=== PATIENT | female | born 1955 | race Caucasian/White ===

== ENCOUNTER 2020-07-02 09:43 | Outpatient (REF) | payer MEDICARE, SELFPAY ==
--- NOTE | 2020-07-02 | MM_ITS ---
EXAMINATION: MM SCREENING DIGITAL BREAST TOMOSYNTHESIS, BILATERAL CLINICAL INFORMATION: Screening. Asymptomatic. The lifetime risk of breast cancer based on the Tyrer-Cuzick Model is 4%. COMPARISON: Mammography: 10/27/2018, 07/23/2017 TECHNIQUE: Digital breast tomosynthesis is performed in both the craniocaudal and mediolateral oblique views along with computer-aided detection (CAD). Synthesized 2D images are generated from the tomosynthesis. FINDINGS: There are scattered areas of fibroglandular density (ACR BI-RADS breast composition Category b). There are no significant masses, abnormal calcifications, or other abnormalities. There is small stable nodule upper outer left breast likely intramammary node similar to prior exams. The axilla and skin contours are unremarkable. IMPRESSION: No significant changes from prior studies. ASSESSMENT: BI-RADS 2: Benign RECOMMENDATION: Routine annual mammography screening. This patient's information was entered into a reminder system with a target due date for their next mammogram.
== END 2020-07-02 09:44 | disposition home or self-care (01) ==
LOC: HO.MAMMO 09:43
PROVIDERS: PCP Internal Medicine; Visit Provider Internal Medicine
DX: Z12.31 Encounter for screening mammogram for malignant neoplasm of breast (principal)
CPT/HCPCS: 77063; 77067

== ENCOUNTER → 2020-11-30 07:38 | Outpatient (BNVA) | payer MEDICARE, SELFPAY | PROVIDERS: PCP Internal Medicine; Visit Provider Advanced Practice Midwife ==

== ENCOUNTER 2021-03-04 10:18 | Outpatient (REF) | payer MEDICARE, SELFPAY ==
[2021-03-04 12:29] LABS: Mean Corpuscular HGB Conc 33.3 g/dl (31.0-35.0); Mean Corpuscular Hemoglobin 30.3 pg (27.0-33.0); Mean Corpuscular Volume 90.9 fL (80-98); Platelet Count 227 X10*3/uL (160-400); Red Blood Count 4.62 X10*6/uL (4.20-5.50); Red Cell Distribution Width 12.9 % (11.0-16.0); White Blood Count 6.7 X10*3/uL (4.8-10.8)
[2021-03-04 12:44] LABS: Alanine Aminotransferase 20 U/L (0-31); Albumin Level 4.2 g/dL (3.5-5.0); Alkaline Phosphatase 81 U/L (39-117); Anion Gap 11 (12-20); Aspartate Amino Transferase 16 U/L (5-31); Bilirubin Total 0.7 mg/dL (0.0-1.0); Blood Urea Nitrogen 11 mg/dL (9-16); Calcium 9.1 mg/dL (8.4-10.2); Carbon Dioxide 27 mmol/L (22-29); Chloride 107 mmol/L (96-108); Estimated Glomerular Filt Rate > 60; Glucose Random 100 mg/dL (60-115); Potassium 4.2 mmol/L (3.3-5.1); Sodium 141 mmol/L (135-145); Total Protein 6.9 g/dL (6.5-8.0)
== END 2021-03-04 10:19 | disposition home or self-care (01) ==
LOC: HO.LAB 10:18
PROVIDERS: PCP Internal Medicine; Referring Provider Internal Medicine; Visit Provider Nurse Practitioner Family
DX: Z01.818 Encounter for other preprocedural examination (principal)
CPT/HCPCS: 36415; 80053; 85027; 99202

== ENCOUNTER 2021-04-26 12:07 | Day surgery (SDC) | payer MEDICARE, SELFPAY ==
[2021-04-22 10:47] VITALS: BMI 34.9
--- NOTE | 2021-04-25 11:47 | HO.ANESPROP2 ---
Documented by User: Donna Emma 04/25/21 11:49 HPI - Anesthesia Eval Consult details Narrative: 65yo F Colonoscopy PMFSH Past Medical History Medical History No significant medical problems Family History Family History Father Leukemia Surgical History Surgical History H/O colonoscopy Hx of section Hx of dilation and curettage Hx of tubal ligation Social History Social History Alcohol intake: never Patient Tobacco Use Status: Tobacco use Unknown Advance Directives Information Provided: No Meds Allergies Allergy/AdvReac Type Severity Reaction Status Date / Time No Known Allergies Allergy Verified 04/26/21 12:12 [No Known Allergies*] Home Medications Medication Instructions Recorded Confirmed Last Taken Type cholecalciferol (vitamin D3) 25 25 mcg PO DAILY 03/04/21 04/22/21 Unknown History mcg (1,000 unit) capsule Exam Exam Date and Time: April 25, 2021 1147 Height,Weight and Vital Signs: Height 4 ft 11 in Weight 78.528 kg Pertinent Lab Results Pertinent Lab Results: Laboratory Tests 03/04/21 03/04/21 11:43 11:43 WBC 6.7 Hgb 14.0 Hct 42.0 Plt Count 227 Sodium 141 Potassium 4.2 Chloride 107 Carbon Dioxide 27 BUN 11 Creatinine 0.66 Assessment and Plan Assessment Anesthesia Assessment: Chart Reviewed Documented by User: Di Almanza MD 04/26/21 13:45 PMFSH Past Medical History Medical History No significant medical problems Functional capacity: wheelchair bound Family History Family History Father Leukemia Surgical History Surgical History H/O colonoscopy Hx of section Hx of dilation and curettage Hx of tubal ligation History of Problems with Anesthesia: No Social History Social History Alcohol intake: never Patient Tobacco Use Status: Tobacco use Unknown Advance Directives Information Provided: No Meds Allergies Allergy/AdvReac Type Severity Reaction Status Date / Time No Known Allergies Allergy Verified 04/26/21 12:12 [No Known Allergies*] Home Medications Medication Instructions Recorded Confirmed Last Taken Type cholecalciferol (vitamin D3) 25 25 mcg PO DAILY 03/04/21 04/22/21 Unknown History mcg (1,000 unit) capsule Exam Airway Mallampati Class: II TM Dist: >3cm Neck ROM: Full Denture: Upper Partial: Lower Loose/Missing/Broken Teeth: Yes, Upper and Lower Heart: RRR Lungs: CTA Assessment and Plan Assessment Anesthesia Assessment: Anesthesia Plan Discussed Final Anesthetic Review History of Problems with Anesthesia: No NPO: Yes ASA Class: II Final Preanesthetic Review: Meds/Allgs Chart Reviewed, Consent Obtained/Reviewed and Anes Risks/Benef Reviewed Patient Risk: Low Procedure Risk: Low Anesthetic Plan Anesthetic Plan: MAC: Disposition: Standard PACU
[2021-04-26 12:45] VITALS: BP 138/73; PULSE 76; RESP 18; TEMP 36.1; O2SAT 93
[2021-04-26] MEDS: Lactated Ringers 1,000 ML 100 ML IVCONT (12:48)
--- NOTE | 2021-04-26 13:27 | MHC.SHP ---
Pre-Procedural Eval Section A Date of Service: 04/26/21 The patient is an INPATIENT: No The History & Physical has been completed within 30 days and I have reviewed it.: No Section B Chief Complaint: screening Details of Present Illness: Colon cancer screening Relevant Family History (Specify if Yes): No Relevant Social History: None Present Medications: see Short Stay Collaborative assessment Medical History: No relevant PMH History of Previous Operations: Relevant previous surgery/procedure and date(s) (Hx of section Hx of dilation and curettage Hx of tubal ligation) Allergies: Allergies Allergy/AdvReac Type Severity Reaction Status Date / Time No Known Allergies Allergy Verified 04/26/21 12:12 [No Known Allergies*] Review of Systems Sugical H&P ROS: Negative: Constitution, Cardiovascular, Respiratory and Genitourinary Exam Surgical H&P Exam: Normal: Heart, Normal: Lungs, Normal: Extremities and Normal: Abdomen Plan Diagnosis/Plan: Unchanged I have reviewed the history and physical and performed a pertinent physical examination on my patient. No changes have occurred unless specified.
--- NOTE | 2021-04-26 13:43 | PM.OP ---
Brief Operative Note Date of Service: 04/26/21 Pre-op diagnosis: Colon cancer screening, hx of colon polyps Post-op diagnosis: other (Colon polyps, diverticulosis) Procedure: COLONOSCOPY TILL CECUM WITH BIOPSIES, SNARE POLYPECTOMY AND CONTROL OF BLEEDING Consent: Indications for the procedure and potential complications of bleeding, perforation, reaction to medications and missed diagnosis were discussed with the patient and informed consent was obtained. Instrument: Olympus PCF H 190 L variable stiffness pediatric colonoscope Monitoring: Vital signs and clinical assessment, intermittent blood pressure monitoring, continuous EKG monitoring, Pulse oximetry and Carbon Dioxide monitoring were done throughout the procedure. Colon withdrawl time was 31 minutes. Procedure: The patient was placed in the left lateral decubitis position and pre-procedure medications were administered. After a digital rectal examination of the ano-rectum, the video colonoscope was inserted into the rectum and advanced through the colon to the cecum. The colonoscope was slowly withdrawn in a retrograde panoramic fashion and the colon mucosa was carefully examined including a retroflexed view of the rectum. Findings and interventions are described below. Procedure Difficulty: Without difficulty Findings: Terminal Ileum: Not evaluated Cecum: A 5-6 mm sessile polyp removed with a cold snare. A 2-3 mm sessile polyp removed with a cold bx. Ascending Colon: Scattered diverticulosis Transverse Colon: Two 10-12 mm sessile polyps removed with a cold snare. Descending Colon: Moderate diverticulosis. Sigmoid Colon: A 15 mm sessile polyp at 30 cms inadvertantly removed with a cold snare. Some bleeding at polypectomy site controlled with cautery using the snare tip. Moderate diverticulosis Rectum: Normal Ano-rectum: Normal Colon preparation: Good after some irrigation Impression and Post Procedure Diagnosis: Colonoscopy Findings: Five small to medium sized polyps removed Moderate diverticulosis seen in the right and left colon Plan: Await pathology results Patient has an appointment on 05/10/21 in the GI Clinic with Tammy Lambert FNP-BC. Repeat Colonoscopy interval based on path results - in 3-5 years if polyps are adenomatous and 10 years if polyps are hyperplastic. Above findings were reviewed with the patient and colon polyps and diverticulosis handouts were given in the discharge area Surgeon: Ed Awad MD Anesthesia: MAC (Elif Brown CRNA) Was an Applied Marine Physics Professor used for this Procedure?: No Applied Marine Physics Professor: Zen Durand Estimated blood loss (mL): 0 Pathology: other (A- TRANSVERSE COLON POLYPS B- CECAL POLYPS C SIGMOID POLYP) Condition: stable Disposition: PACU
[2021-04-26 14:33] VITALS: BP 106/58; PULSE 83; RESP 18; TEMP 36.1; O2SAT 98
[2021-04-26 14:48] VITALS: BP 109/55; PULSE 81; RESP 20; O2SAT 99
[2021-04-26 15:03] VITALS: BP 120/54; PULSE 69; RESP 20; TEMP 36.2; O2SAT 99
--- NOTE | 2021-04-26 19:19 | P.OP_ITS ---
Operative Note Operative Note Date of Service: 04/26/21 Narrative: Pre-op diagnosis:?Colon cancer screening, hx of colon polyps Post-op diagnosis:?other (Colon polyps, diverticulosis) Procedure:? COLONOSCOPY TILL CECUM WITH BIOPSIES, SNARE POLYPECTOMY AND CONTROL OF BLEEDING Consent: Indications for the procedure and potential complications of bleeding, perforation, reaction to medications and missed diagnosis were discussed with the patient and informed consent was obtained. Instrument: Olympus PCF H 190 L variable stiffness pediatric colonoscope Monitoring: Vital signs and clinical assessment, intermittent blood pressure monitoring, continuous EKG monitoring, Pulse oximetry and Carbon Dioxide monitoring were done throughout the procedure. Colon withdrawl time was 31 minutes. Procedure: The patient was placed in the left lateral decubitis position and pre-procedure medications were administered. After a digital rectal examination of the ano-rectum, the video colonoscope was inserted into the rectum and advanced through the colon to the cecum. The colonoscope was slowly withdrawn in a retrograde panoramic fashion and the colon mucosa was carefully examined including a retroflexed view of the rectum. Findings and interventions are described below. Procedure Difficulty: Without difficulty Findings: Terminal Ileum: Not evaluated Cecum:? A 5-6 mm sessile polyp removed with a cold snare.? A 2-3 mm sessile polyp removed with a cold bx. Ascending Colon:? Scattered diverticulosis Transverse Colon:? Two 10-12 mm sessile polyps removed with a cold snare. Descending Colon:? Moderate diverticulosis. Sigmoid Colon:? A 15 mm sessile polyp at 30 cms inadvertantly removed with a cold snare. Some bleeding at polypectomy site controlled with cautery using the snare tip.? Moderate diverticulosis Rectum:? Normal Ano-rectum:? Normal Colon preparation:? Good after some irrigation Impression and Post Procedure Diagnosis: Colonoscopy Findings: Five small to medium sized polyps removed Moderate diverticulosis seen in the right and left colon Plan: Await pathology results Patient has an appointment on 05/10/21 in the GI Clinic with Tammy Lambert FNP- [facility]. Repeat Colonoscopy interval based on path results - in 3-5 years if polyps are adenomatous and 10 years if polyps are hyperplastic. Above findings were reviewed with the patient and colon polyps and diverticulosis handouts were given in the discharge area Surgeon:?Ed Awad MD Anesthesia:?MAC (Elif Brown CRNA) Was an Justowriter Operator used for this Procedure?:?No Justowriter Operator:?Zen Durand Estimated blood loss (mL):?0 Pathology:?other (A- TRANSVERSE COLON POLYPS? B- CECAL POLYPS? C SIGMOID POLYP) Condition:?stable Disposition:?PACU
== END 2021-04-26 15:34 | disposition home or self-care (01) ==
PROVIDERS: PCP Internal Medicine; Visit Provider Internal Medicine Gastroenterology
PROC: 0DJD8ZZ Inspection of Lower Intestinal Tract, Via Natural or Artificial Opening Endoscopic (ICD-10-PCS; CPT 45378; principal; 2021-04-26 13:20)
DX: Z12.11 Encounter for screening for malignant neoplasm of colon (principal); Z86.010 Personal history of colon polyps; D12.0 Benign neoplasm of cecum; D12.3 Benign neoplasm of transverse colon; K51.40 Inflammatory polyps of colon without complications; K57.30 Diverticulosis of large intestine without perforation or abscess without bleeding; Z79.899 Other long term (current) drug therapy; Z80.6 Family history of leukemia
CPT/HCPCS: 45385; 45380; 88305

== ENCOUNTER → 2021-05-10 15:04 | Outpatient (BNVA) | payer MEDICARE, SELFPAY | PROVIDERS: Visit Provider Nurse Practitioner Family | DX: D12.3 Benign neoplasm of transverse colon (principal); D12.0 Benign neoplasm of cecum; K57.90 Diverticulosis of intestine, part unspecified, without perforation or abscess without bleeding; Z98.890 Other specified postprocedural states | CPT/HCPCS: Q3014 ==

== ENCOUNTER 2021-07-22 09:48 | Outpatient (REF) | payer MEDICARE, SELFPAY ==
--- NOTE | ~2021-07-22 | MM_ITS ---
EXAMINATION: MM SCREENING DIGITAL BREAST TOMOSYNTHESIS, BILATERAL CLINICAL INFORMATION: Screening. Asymptomatic. The lifetime risk of breast cancer based on the Tyrer-Cuzick Model is 4%. COMPARISON: Mammography: 07/02/2020, 10/27/2018, 07/23/2017 TECHNIQUE: Digital breast tomosynthesis is performed in both the craniocaudal and mediolateral oblique views along with computer-aided detection (CAD). Synthesized 2D images are generated from the tomosynthesis. FINDINGS: There are scattered areas of fibroglandular density (ACR BI-RADS breast composition Category b). There are no significant masses, abnormal calcifications, or other abnormalities. No developing density. No significant changes. MM/MM tomosynthesis screening BI IMPRESSION: No mammographic evidence of malignancy. ASSESSMENT: BI-RADS 1: Negative RECOMMENDATION: Routine annual mammography screening. This patient's information was entered into a reminder system with a target due date for their next mammogram.
== END 2021-07-22 09:49 | disposition home or self-care (01) ==
LOC: HO.MAMMO 09:48
PROVIDERS: PCP Physician Assistant; Visit Provider Physician Assistant
DX: Z12.31 Encounter for screening mammogram for malignant neoplasm of breast (principal)
CPT/HCPCS: 77063; 77067

== ENCOUNTER 2021-12-02 08:35 | Outpatient (REF) | payer MEDICARE, SELFPAY | END 2021-12-02 08:36 | disposition home or self-care (01) | LOC: HO.LAB 08:35 | PROVIDERS: PCP Internal Medicine; Visit Provider Advanced Practice Midwife | DX: Z01.411 Encounter for gynecological examination (general) (routine) with abnormal findings (principal); N84.1 Polyp of cervix uteri; L29.9 Pruritus, unspecified | CPT/HCPCS: 57500; 58558; 88305 ==

== ENCOUNTER 2021-12-25 11:24 | Outpatient (REF) | payer MEDICARE, SELFPAY ==
--- NOTE | ~2021-12-25 | US_ITS ---
EXAMINATION: US PELVIS CLINICAL INFORMATION: Cervical polyp COMPARISON: Previous pelvic ultrasound most recent January 2017 TECHNIQUE: Ultrasound of the pelvis is performed using both transabdominal and transvaginal transducers along with Doppler. Transvaginal imaging is performed due to inadequate visualization transabdominally. FINDINGS: The uterus is anteverted and measures 7.5 x 3.5 x 5.2 cm in dimension. There is a 0.9 x 0.7 x 0.9 cm hypoechoic lesion in the anterior upper uterine body that is a similar to previous exam and probably represents a fibroid. No other focal uterine lesion is seen. The endometrium is slightly thickened measuring 0.8 cm. The endometrium appears more homogeneous than seen on January 2017 exam. There are nabothian cysts in the cervix. No cervical mass or polyp is appreciated. The ovaries are normal-appearing. The right ovary measures 1.9 x 1.1 x 1.5 cm. The left ovary measures 2.1 x 0.9 x 1.2 cm. There is no fluid in the pelvis. US/US pelvic and transvaginal IMPRESSION: Slightly thickened endometrium measuring 0.8 cm. Probable small uterine fibroid. Nabothian cysts in the cervix. Normal-appearing ovaries.
== END 2021-12-25 11:25 | disposition home or self-care (01) ==
LOC: HO.US 11:24
PROVIDERS: Visit Provider Advanced Practice Midwife
DX: N84.1 Polyp of cervix uteri (principal)
CPT/HCPCS: 76830; 76856

== ENCOUNTER 2022-01-01 15:17 | Outpatient (REF) | payer MEDICARE, SELFPAY ==
[2022-01-02 09:43] LABS: BV Int Neg Control Negative (Negative); BV Int Pos Control Positive (Positive)
== END 2022-01-01 15:18 | disposition home or self-care (01) ==
LOC: HO.LAB 15:17
PROVIDERS: PCP Physician Assistant; Visit Provider Advanced Practice Midwife
DX: L29.2 Pruritus vulvae (principal); D25.9 Leiomyoma of uterus, unspecified; Z71.2 Person consulting for explanation of examination or test findings
CPT/HCPCS: 87480; 87510; 87660; 99212

== ENCOUNTER 2022-07-28 10:00 | Outpatient (REF) | payer MEDICARE, SELFPAY ==
--- NOTE | ~2022-07-28 | MM_ITS ---
EXAMINATION: MM SCREENING DIGITAL BREAST TOMOSYNTHESIS, BILATERAL CLINICAL INFORMATION: Screening. Asymptomatic. COMPARISON: Mammography: 07/22/2021, 07/02/2020, 10/27/2018, 08/10/2017, 07/08/2016 TECHNIQUE: Digital breast tomosynthesis is performed in both the craniocaudal and mediolateral oblique views along with computer-aided detection (CAD). Synthesized 2D images are generated from the tomosynthesis. FINDINGS: There are scattered areas of fibroglandular density (ACR BI-RADS breast composition Category b). Scattered fine fibronodular pattern is similar to prior studies . No significant mass or architectural abnormality. No abnormal calcifications. The axilla and skin contours are unremarkable. No significant changes. MM/MM tomosynthesis screening BI IMPRESSION: No mammographic evidence of malignancy. ASSESSMENT: BI-RADS 1: Negative RECOMMENDATION: Routine annual mammography screening. This patient's information was entered into a reminder system with a target due date for their next mammogram.
== END 2022-07-28 10:01 | disposition home or self-care (01) ==
LOC: HO.MAMMO 10:00
PROVIDERS: PCP Physician Assistant; Visit Provider Physician Assistant
DX: Z12.31 Encounter for screening mammogram for malignant neoplasm of breast (principal)
CPT/HCPCS: 77063; 77067

== ENCOUNTER → 2022-12-04 10:10 | Outpatient (BNVA) | payer MEDICARE, SELFPAY | PROVIDERS: PCP Physician Assistant; Visit Provider Advanced Practice Midwife ==

== ENCOUNTER 2023-09-15 10:51 | Outpatient (REF) | payer MEDICARE, SELFPAY | END 2023-09-15 10:52 | disposition home or self-care (01) | LOC: HO.MAMMO 10:51 | PROVIDERS: Visit Provider Physician Assistant | DX: Z12.31 Encounter for screening mammogram for malignant neoplasm of breast (principal) | CPT/HCPCS: 77063; 77067 ==

== ENCOUNTER → 2023-09-15 11:30 | Outpatient (BNV) | payer MEDICARE, SELFPAY | PROVIDERS: Visit Provider Radiology Diagnostic Radiology | DX: Z12.31 Encounter for screening mammogram for malignant neoplasm of breast (principal) | CPT/HCPCS: 77063; 77067 ==

== ENCOUNTER 2023-12-08 09:56 | Outpatient (AMB) | payer MEDICARE, SELFPAY ==
--- NOTE | 2023-12-08 10:06 | A.OFFVIS_ITS ---
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 She is doing well with concerns: Occasional external irritation, admits to using scented soaps. Admits to eat a not healthy diet,reports has calcium and vitamin D, and stays active with some walking. Currently not sexually active. Occasional external irritation. Last mammogram; 2022. Colonoscopy is UTD. Denies any family history of breast, ovarian or colon cancer. PFS Medical History Tubular adenoma No significant medical problems Surgical History H/O colonoscopy Hx of dilation and curettage Hx of tubal ligation Hx of section Family History Father Leukemia Social History Alcohol intake: never Patient Tobacco Use Status: Tobacco use Unknown Female Reproductive History Menstrual Menopause type: natural Total pregnancies: 3 Full term: 3 Number of Living Children: 3 Date of last pap smear: 02/07/19 (neg pap and hpv) Date of Mammogram: 09/15/23 ([facility] 1) Review of Systems Const All systems reviewed & are unremarkable except as noted in HPI and below Reports as per HPI Eyes Reports no additional complaints ENT Reports no additional complaints Card Reports no additional complaints Resp Reports no additional complaints GI Reports as per HPI and Reports no additional complaints Reports as per HPI Musc Reports no additional complaints Skin/Breast Reports as per HPI Neuro Reports no additional complaints Psych Reports no additional complaints Endo Reports no additional complaints Ag/Lymph Reports no additional complaints Aller/Immun Reports no additional complaints Physical Exam Vital Signs: Last Vital Signs BP 102/66 12/08/23 10:07 BMI result Body Mass Index 39.2 Const General: cooperative, healthy appearing, no acute distress, well developed and alert Orientation/consciousness: patient oriented x3 HEENT Head: Yes normal to inspection Eyes General: appearance normal, both eyes and all related structures Neck Neck: Yes normal visual inspection Thyroid: Thyroid normal Chest Chest palpation & inspection: normal inspection of the chest and other (no puckering, dimpling, peau de orange, retraction, discharge, masses) Breast/axilla inspection: normal inspection of the breasts Breast/axilla palpation: normal palpation of the breasts Resp Effort & Inspection: normal respiratory effort GI Inspection: Yes normal to inspection and Yes obesity Palpation (GI): Soft to palpation Rectal Exam - Female: deferred General: Yes bladder normal to palpation External Female Exam: normal external appearance and normal appearance of the urethra Speculum Exam - Vagina: normal appearance of the vagina, normal palpation and normal vaginal discharge Speculum Exam - Cervix: normal appearance of the cervix and normal palpation Bimanual exam- vagina & uterus: normal bimanual exam, normal palpation, uterine size normal, bladder normal to palpation, normal palpation and non-tender Bimanual Exam- Adnexa, other: no masses Skin General skin exam: no rashes or lesions noted Rashes: no rashes Neuro General: patient oriented x3 Cognition (Neuro): normal cognition Extrem General: Yes normal to inspection Psych Attitude: cooperative Thought process: Normal thought process present Assessment & Plan Assessment & Plan (1) Encounter for well woman exam with routine gynecological exam: Code(s): Z01.419 - Encounter for gynecological examination (general) (routine) without abnormal findings Plan Discussed: Current recommendations for pap smears per ASCCP guidelines. Breast awareness, periodic self breast exams and yearly mammogram. Maintain a healthy lifestyle, well balanced diet including Calcium 1,200 mg and Vitamin D 600 IU daily, and routine exercise-start slow, an example 15 minute walk, gradually building up. Advised to stop using scented soaps go with more of a mild unscented, baby soap, dry well, loose cotton clothing. Contact the office with any postmenopausal bleeding. Patient verbalizes understanding and agrees to the plan of care. She was given opportunity to ask questions and all questions were answered to the best of my ability. RTO in 1 year for annual ob gyn physician assistant exam. This note is constructed using voice recognition software. While every effort has been made to ensure accuracy, dispensary technician errors may have been included. Coding Level of Care Code Est Pt Prev Care >65y(86669) Diagnoses Encounter for well woman exam with routine gynecological exam Z01.419
[2023-12-08 10:07] VITALS: BP 102/66; BMI 39.2
== END 2023-12-08 10:33 | disposition home or self-care (01) ==
LOC: HO.HWS 09:56
PROVIDERS: PCP Physician Assistant; Visit Provider Advanced Practice Midwife
DX: Z01.419 Encounter for gynecological examination (general) (routine) without abnormal findings (principal)
CPT/HCPCS: 99397

== ENCOUNTER → 2023-12-08 09:56 | Outpatient (BNVA) | payer MEDICARE, SELFPAY | PROVIDERS: PCP Physician Assistant; Visit Provider Advanced Practice Midwife ==

== ENCOUNTER 2024-09-16 10:42 | Outpatient (REF) | payer MEDICARE, SELFPAY | END 2024-09-16 10:43 | disposition home or self-care (01) | LOC: HO.MAMMO 10:42 | PROVIDERS: PCP Physician Assistant; Visit Provider Physician Assistant | DX: Z12.31 Encounter for screening mammogram for malignant neoplasm of breast (principal) | CPT/HCPCS: 77063; 77067 ==

== ENCOUNTER → 2024-09-16 11:15 | Outpatient (BNV) | payer MEDICARE, SELFPAY | PROVIDERS: PCP Physician Assistant; Visit Provider Internal Medicine | DX: Z12.31 Encounter for screening mammogram for malignant neoplasm of breast (principal) | CPT/HCPCS: 77063; 77067 ==

== ENCOUNTER 2024-12-13 10:21 | Outpatient (REF) | payer MEDICARE, SELFPAY ==
[2024-12-13 18:01] LABS: Bacterial Vaginosis PCR NEGATIVE (Negative); Candida Group PCR NOT DETECTED (Not Detect); Candida glab krusei PCR NOT DETECTED (Not Detect); Trichomonas vaginalis PCR NOT DETECTED (Not Detect)
== END 2024-12-13 10:22 | disposition home or self-care (01) ==
LOC: HO.LAB 10:21
PROVIDERS: PCP Physician Assistant; Visit Provider Advanced Practice Midwife
DX: L29.2 Pruritus vulvae (principal)
CPT/HCPCS: 81515; 99397; 99459

== ENCOUNTER 2024-12-13 10:21 | Outpatient (AMB) | payer MEDICARE, SELFPAY ==
[2024-12-13 11:08] VITALS: BP 130/76; BMI 37.8
--- NOTE | 2024-12-13 11:08 | MHC.OFFVIS ---
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 She is doing well with ledger clerk concerns: outside itching at times. Currently not sexually active. Denies any vaginal dryness or irritation. Attempting to eat a healthy diet with calcium and vitamin D and stays active with exercise. Last pap smear; 2018. Last mammogram; 2023. Colonoscopy is UTD. Denies any family history of breast, ovarian or colon cancer. [facility] Medical History Encounter for well woman exam with routine gynecological exam Tubular adenoma No significant medical problems Surgical History H/O colonoscopy Hx of dilation and curettage Hx of tubal ligation Hx of section Family History Father Leukemia Brother Prostate cancer Social History Alcohol intake: never Patient Tobacco Use Status: Tobacco use Unknown Female Reproductive History Menstrual Menopause type: natural Total pregnancies: 3 Full term: 3 Number of Living Children: 3 Date of last pap smear: 02/07/19 (neg pap and hpv) Date of Mammogram: 09/16/24 ([facility] 1) Review of Systems Const All systems reviewed & are unremarkable except as noted in HPI and below Reports as per HPI Eyes Reports no additional complaints ENT Reports no additional complaints Card Reports no additional complaints Resp Reports no additional complaints GI Reports as per HPI and Reports no additional complaints Reports as per HPI Musc Reports no additional complaints Skin/Breast Reports as per HPI Neuro Reports no additional complaints Psych Reports no additional complaints Endo Reports no additional complaints Ag/Lymph Reports no additional complaints Aller/Immun Reports no additional complaints Physical Exam Vital Signs: Last Vital Signs BP 130/76 12/13/24 11:08 BMI result Body Mass Index 37.8 Const General: cooperative, healthy appearing, no acute distress, well developed and alert Orientation/consciousness: patient oriented x3 HEENT Head: Yes normal to inspection Eyes General: appearance normal, both eyes and all related structures Neck Neck: Yes normal visual inspection Thyroid: Thyroid normal Chest Chest palpation & inspection: normal inspection of the chest and other (no puckering, dimpling, peau de orange, retraction, discharge, masses) Breast/axilla inspection: normal inspection of the breasts Breast/axilla palpation: normal palpation of the breasts Resp Effort & Inspection: normal respiratory effort GI Inspection: Yes obesity Palpation (GI): Soft to palpation Rectal Exam - Female: deferred General: Yes bladder normal to palpation External Female Exam: normal external appearance and normal appearance of the urethra Speculum Exam - Vagina: normal appearance of the vagina, normal palpation, normal vaginal discharge and vagina atrophic Speculum Exam - Cervix: normal appearance of the cervix and normal palpation Bimanual exam- vagina & uterus: normal bimanual exam, normal palpation, uterine size normal, bladder normal to palpation, normal palpation and non-tender Bimanual Exam- Adnexa, other: no masses Skin General skin exam: no rashes or lesions noted Rashes: no rashes Neuro General: patient oriented x3 Cognition (Neuro): normal cognition Extrem General: Yes normal to inspection Psych Attitude: cooperative Thought process: Normal thought process present Assessment & Plan Assessment & Plan (1) Encounter for well woman exam with routine gynecological exam: Code(s): Z01.419 - Encounter for gynecological examination (general) (routine) without abnormal findings Category: Medical Plan: Discussed: Current recommendations for pap smears per ASCCP guidelines. Breast awareness, periodic self breast exams and yearly mammogram. Maintain a healthy lifestyle, well balanced diet including Calcium 1,200 mg and Vitamin D 600 IU daily, and routine exercise. Contact the office with any postmenopausal bleeding. Patient verbalizes understanding and agrees to the plan of care. She was given opportunity to ask questions and all questions were answered to the best of my ability. RTO in 1 year for annual ledger clerk exam. This note is constructed using voice recognition software. While every effort has been made to ensure accuracy, outside sales representative insurance errors may have been included. (2) Vulvar itching: Code(s): L29.2 - Pruritus vulvae Plan Discussed: Skin area appears normal, various causes for vulvar itching. BV culture obtained await results for plan of care. Avoid any tight reconstructive clothing, continue to use cotton underwear and use a mild unscented soap to clean if needed. Follow up p.r.n.. The patient expressed understanding and agreement with the plan of care. All of her questions and concerns were addressed to the best of my ability. Total time I personally spent on visit and management today: ?10minutes. Time spent included review of pertinent office notes in the electronic health record; review of laboratory and imaging results; review of personal family medical history; performing physical exam; discussing diagnosis and plan of care with the patient; documenting the encounter in the EMR. Coding Level of Care Code Est Pt Level 2 (50131) Est Pt Prev Care >65y(84355) Diagnoses Encounter for well woman exam with routine gynecological exam Z01.419 Vulvar itching L29.2
== END 2024-12-13 11:36 | disposition home or self-care (01) ==
LOC: HO.HWS 10:21
PROVIDERS: PCP Physician Assistant; Visit Provider Advanced Practice Midwife
DX: Z01.419 Encounter for gynecological examination (general) (routine) without abnormal findings (principal); L29.2 Pruritus vulvae
CPT/HCPCS: 99397; 99459

== ENCOUNTER 2025-08-04 14:39 | Outpatient (AMB) | payer MEDICARE, SELFPAY ==
--- NOTE | 2025-08-04 15:12 | MHC.PC.OV ---
Vital Signs 08/04/25 15:13 Height 4 ft 11 in Weight 183 lb 8 oz BMI 37.1 BP 120/68 Blood Pressure Location Rt brachial Position Sitting Pulse 69 Pulse Source Pulse Oximeter Temp 97.5 F Temp Source Temporal Artery Scan Pulse Oximetry (%) 98 Oxygen Delivery Method Room Air Intake Visit Reasons: establish care Intake Note: Patient is a new patient here to establish care for Pre-DM, GI issues, Insomina. Transferring care from Aliyah Le ([place], [place]). Medical records have been requested and have not received. Folding Machine Tender Required: Yes Folding Machine Tender Language: Buffet Manager Name: Aliyah [id number] [employer] Exploration Technician: Not Required per policy Accompanied by: Self / Same As Patient Allergies No Known Allergies (No Known Allergies*) Allergy (Verified 08/04/25 15:13) Medication List - Last Reconciled 08/04/25 by Brian Yip MD albuterol sulfate 90 mcg/actuation 1 inh inhalation Q4-6H PRN cholecalciferol (vitamin D3) 25 mcg PO DAILY citalopram 20 mg PO DAILY fluticasone propionate 50 mcg/actuation (Flonase Allergy Relief) 1 spray intranasal DAILY melatonin 10 mg (2 x 5 mg) PO BEDTIME PRN meloxicam 7.5 mg PO DAILY propranolol ER 60 mg PO BEDTIME propranolol ER 60 mg PO DAILY Tobacco use date assessed: 08/04/25 Fall risk assessment: No Falls in past year Last assessed Fall Risk: 08/04/25 Dental Screening Dental Screen Date: 08/04/25 Did you have a dental visit in the last 12 months?: No Did you have a dental problem in the last 6 months where you did not have access to dental care?: No Was dental information given to patient?: Patient has dentist HPI HPI Comments History of Present Illness Details The patient is a 69-year-old female with PMH of MDD, essential tremor, TUD presenting to establish primary care. Her primary complaint is intermittent diarrhea, characterized by episodes of 5-6 bowel movements per day. The stools are described as watery and sometimes softer than typical diarrhea. She has noticed that eating eggs may be a trigger, though not consistently. The patient previously saw a ore dressing engineer who found stool samples to be normal, with no further follow-up scheduled. The patient also reports a recent onset of gait instability, where she feels she cannot walk straight and veers to the side. This is more noticeable after prolonged sitting or when getting out of a car, and is not associated with pain. Additionally, she has a history of shaking, for which she takes propranolol, and finds it to be effective. She reports having memory problems. Her last colonoscopy was approximately two years ago, and she recalls being told she had benign nodules. She does not have the results of this procedure. A sleep study was performed about a month and a half ago, but she has not yet received the results. She denies ever using a CPAP machine. The patient's medication history includes citalopram for depression/anxiety, propranolol for tremor, and an albuterol inhaler for as-needed use. She acknowledges poor adherence, stating she often forgets to take medications other than citalopram and propranolol. 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 She is a former smoker, having quit about 10 years ago. She reports that she never inhaled the smoke properly. Her diet includes frequent consumption of cheese and bread. [facility] Medical History (Updated 08/04/25 @ 16:38 by Brian Yip MD) Encounter for well woman exam with routine gynecological exam Tubular adenoma No significant medical problems Surgical History (Updated 08/04/25 @ 15:33 by OLIVIA Desai) History of cataract surgery H/O colonoscopy Hx of dilation and curettage Hx of tubal ligation Hx of section Family History (Updated 08/04/25 @ 15:12 by OLIVIA Desai) Father Leukemia Brother Prostate cancer Social History (Updated 08/04/25 @ 15:34 by OLIVIA Desai) Housing: Apartment Alcohol intake: never Patient Tobacco Use Status: Former Tobacco user e-Cigarette/Vaping Use: Never Used Second Hand Smoke Exposure: No service: No Current occupational status: employed 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 1. Little interest or pleasure in doing things: not at all 2. Feeling down, depressed, or hopeless: not at all 3. Trouble falling or staying asleep, or sleeping too much: more than half the days 4. Feeling tired or having little energy: more than half the days 5. Poor appetite or overeating: not at all 6. Feeling bad about yourself - or that you are a failure or have let yourself or your family down: several days 7. Trouble concentrating on things, such as reading the newspaper or watching television: several days 8. Moving or speaking so slowly that other people could have noticed. Or the opposite - being so fidgety or restless that you have been moving around a lot more than usual: not at all 9. Thoughts that you would be better off or of hurting yourself in some way: not at all Total score: 6 Depression Screening Interpretation: Positive (In treatment. ) Depression Screening Follow-up: Existing condition and In treatment (Citalopram 20 mg Daily. ) Depression Screening Done: Yes Source: Developed by Drs. Cheo Hussein, Marisa Toscano, Ulises Leigh and colleagues, with an educational travis from [employer]. Thrive Questionnaire Date Thrive assessed: 08/04/25 I am a: Patient What is your living situation today?: I have a steady place to live Within the past 12 months, did the food you bought not last and you didn't have the money to get more?: Never true Within the past 12 months, did you worry whether your food would run out before you got money to buy more?: Never true Do you have trouble paying for medicines?: No Do you have trouble getting transportation to medical appointments?: No Do you have trouble paying your heating and electricity bill?: No Do you have trouble taking care of your child, family member or friend?: No Do you have trouble with day-to-day activities such as bathing, preparing meals, shopping, managing finances, etc.?: No Are you currently unemployed and looking for a job?: No Are you interested in more education?: No Please select the resources that you would like help with: None Currently or been in a relationship where the following occur: No concerns reported THRIVE Score: 0 AUDIT C Alcohol Use Questionnaire (AUDIT-C) 1. How often do you have a drink containing alcohol?: Never Total Score: 0 JOSE-7 AMB Questionnaire JOSE-7 Date JOSE - 7 assessed: 08/04/25 Feeling nervous, anxious, or on edge: 1 = Several days Not being able to stop or control worryin = Several days Worrying too much about different things: 1 = Several days Trouble relaxin = Several days Being so restless that it is hard to sit still: 1 = Several days Becoming easily annoyed or irritable: 0 = Not at all Feeling afraid as if something awful might happen: 0 = Not at all Total JOSE-7 score (0-4 normal; 5-9 mild; 10-14 moderate; 15-21 severe): 5 Source: Developed by Drs. Cheo Hussein, Marisa Toscano, Ulises Leigh and colleagues, with an educational travis from [employer]. Review of Systems Const Details: As per HPI. Physical exam (Primary Care) Vital Signs: Last Vital Signs Temp 97.5 F 08/04/25 15:13 Pulse 69 08/04/25 15:13 BP 120/68 08/04/25 15:13 Pulse Ox 98 08/04/25 15:13 Oxygen Delivery Method Room Air 08/04/25 15:13 BMI result Body Mass Index 37.1 Tobacco/Smoking Status: Tobacco use Status Tobacco use date assessed 08/04/25 08/04/25 15:35 Patient Tobacco Use Status Former Tobacco user 08/04/25 15:35 e-Cigarette/Vaping Use Never Used 08/04/25 15:35 PHQ-9: PHQ-9 Score PHQ-9: Total score 6 08/04/25 15:54 Depression Screening Interpretation: Positive (In treatment. ) Depression Screening Follow-up: Existing condition and In treatment (Citalopram 20 mg Daily. ) Thrive Assessment: Date of Thrive Assessment Date Thrive assessed 08/04/25 08/04/25 15:35 Currently or been in a relationship where the following occur: No concerns reported Const Other: Pertinent findings are in BOLD GENERAL APPEARANCE NAD, activity normal for age, well developed/ well nourished, no cyanosis, pallor, or diaphoresis. EYES lids/conjunctiva normal. EARS/NOSE/THROAT Mucous membranes moist, nares normal, lips/teeth normal uvula midline without oral pharyngeal erythema, exudate or swelling TMs normal bilaterally. No lymphangitis/lymphedema. HEAD/NECK normocephalic atraumatic, no facial trauma, neck is supple. RESPIRATORY respiratory effort normal, speaks in full sentences, no tripod position, no accessory muscle use. Lungs clear to auscultation without rhonchi, wheezes, rales CARDIAC Regular rate and rhythm, no edema. ABDOMINAL Soft, ND/NT. No evidence of fluid wave. No pulsatile masses on exam, rebound tenderness, Vargas sign or pain over Mcburney's point. MUSCLES/EXTREMITIES No abnormal range of motion, no swelling. SKIN Warm, pink and dry. No rashes, dermatoses, petechiae or lesions. NEUROLOGICAL Speech is clear and appropriate. Normal level of consciousness. Gait and coordination are normal. 5/5 strength in all extremities. Pronator drift normal, Sensory exam normal. Gait normal in clinic. PSYCH Normal mood and affect. Judgement/competence is appropriate Office Procedures Flu Questionnaire Does the patient have a severe egg allergy?: No Does the patient have severe life threatening allergies?: No Does the patient have a fever or illness today?: No Has the patient ever had Guillain-Bismarck Syndrome?: No Has the patient ever had any past reaction to a flu shot?: No Immunizations Fluarix [id number] (PF) 45 mcg (15 mcg x 3)/0.5 mL IM syringe Performing Provider: Brian Yip MD [place] [facility] [place] [facility] Administered by: Janneth Diaz LPN on 08/04/25 16:25 Dose Route Admin Location Dispensed Lot Number Expiration Date [facility] Director Of Front Office 0.5 mL IM Left Deltoid 0.5 mL [id number] 03/20/26 31658-443-45 [facility] Given Date VIS Provided VIS Publication Date 08/04/25 Single Vaccine 24 Eligibility Eligibility Date Funding Source Not VFC Eligible 08/04/25 Private Boostrix Tdap 2.5 Lf unit-8 mcg-5 Lf/0.5 mL intramuscular syringe Performing Provider: Brian Yip MD [place] [facility] [place] [facility] Administered by: Janneth Diaz LPN on 08/04/25 16:25 Dose Route Admin Location Dispensed Lot Number Expiration Date [facility] Director Of Front Office 0.5 mL IM Left Deltoid 0.5 mL [id number] 12/16/27 [id number] [employer] Total Dispensed Waste 0.5 mL 0 % VIS Given Date VIS Provided VIS Publication Date 08/04/25 Single Vaccine 21 Eligibility Eligibility Date Funding Source Not [facility] Eligible 08/04/25 Private Coding Level of Care Code New Pt Level 3 (07961) New Pt Prev Care >65yr (21853) Diagnoses Healthcare maintenance Z00.00 Tremor R25.1 Current mild episode of major depressive disorder, unspecified whether recurrent F32.0 Active/Remission status: currently active Major depression episode severity: mild Major depression recurrence: unspecified whether recurrent Insomnia, unspecified type G47.00 Insomnia type: unspecified Post menopausal problems N95.9 Tobacco use disorder F17.200 Diarrhea, unspecified type R19.7 Diarrhea type: unspecified type Gait instability R26.81 Time Spent (min) 45 Assessment & Plan Assessment & Plan (1) Healthcare maintenance: Code(s): Z00.00 - Encounter for general adult medical examination without abnormal findings Category: Medical Plan: CBC, CMP, Lipid panel, A1C, TSH w T4, vit D. Ordered. Shingles 2 doses when >50 yo. Completed one dose in the past. COVID: two doses. Completed in the past. Tdap: Ordered. Pneumococcal: >50 yo. 18-49 with CKD, lung disease, weakened immune system, Heart disease, DM, cochlear implant. Completed in the past. Flu vaccine: Ordered. Colonoscopy: 45-75. Patient reports getting colonsocopy recently and it was normal. She will bring results with her next visit. AAA: 65 -[address] lun - 80. Ordered. Stop in 2027. HIV: Ordered. HCV: Ordered. Dexa: Ordered. Mammogram: completed last year. Scheduled in 09/2025. Patient aware. (2) Tremor: Code(s): R25.1 - Tremor, unspecified Category: Medical Plan: - Continue propranolol as it is reported to be effective for her tremors. (3) MDD (major depressive disorder): Code(s): F32.9 - Major depressive disorder, single episode, unspecified Category: Medical Qualifiers: Active/Remission status: currently active Major depression episode severity: mild Major depression recurrence: unspecified whether recurrent Qualified Code(s): F32.0 - Major depressive disorder, single episode, mild Plan: - Continue citalopram as prescribed by her previous provider. (4) Insomnia: Code(s): G47.00 - Insomnia, unspecified Category: Medical Qualifiers: Insomnia type: unspecified Qualified Code(s): G47.00 - Insomnia, unspecified Plan: Increased her Melatonin to 10 mg daily instead of 5. We will assess response with next visit. (5) Post menopausal problems: Code(s): N95.9 - Unspecified menopausal and perimenopausal disorder Category: Medical Plan: Dexa scan ordered. (6) Tobacco use disorder: Code(s): F17.200 - Nicotine dependence, unspecified, uncomplicated Category: Medical Plan: Pulm referral for CT scan screening. AAA ordered. (7) Diarrhea: Code(s): R19.7 - Diarrhea, unspecified Category: Medical Qualifiers: Diarrhea type: unspecified type Qualified Code(s): R19.7 - Diarrhea, unspecified Plan: - Advised the patient to maintain a food diary to track dietary intake prior to episodes of diarrhea. - Recommended a trial of avoiding potential dietary triggers, including eggs, dairy products (milk, cheese, yogurt, butter), and wheat (pasta, bread). - Instructed the patient to request and provide a copy of her last colonoscopy report. (8) Gait instability: Code(s): R26.81 - Unsteadiness on feet Category: Medical Plan: - Physical exam did not reveal signs of nerve damage, and gait was observed to be normal in the office. - Advised the patient to pause for several seconds after standing up from a seated position before beginning to walk. - Instructed to seek follow-up if symptoms persist or if she experiences any falls. Plan I introduced myself as the patient's new primary care physician. We discussed her intermittent diarrhea. I advised her to try an elimination diet, avoiding eggs, dairy, and wheat, and to keep a food diary to see if she can identify specific triggers. Regarding her c/o gait instability, I performed a neurologic exam which did not show any focal deficits or signs of nerve damage. I counseled her to rise slowly from a seated position, waiting a few seconds before walking, and to follow up if the issue persists or results in falls. We reviewed her health maintenance needs extensively. I ordered a comprehensive set of fasting labs, including HCV and HIV, which she agreed to. I also ordered a DEXA scan for osteoporosis screening, an abdominal ultrasound for AAA screening due to her smoking history, and a referral to pulmonology for a lung cancer screening CT scan. We discussed vaccinations, and she consented to receiving both the influenza and tetanus shots today. We reconciled her medications, and I advised her to continue her citalopram and propranolol, while also suggesting she could increase her melatonin dosage for sleep. I advised her to obtain records from her previous colonoscopy and recent sleep study for our files. Orders: Orders Complete Blood Count no Diff Today F32.9 - Major depressive disorder, single episode, unspecified, G47.00 - Insomnia, unspecified, R25.1 - Tremor, unspecified, Z00.00 - Encounter for general adult medical examination without abnormal findings Hepatitis C Antibody Reflex Today F32.9 - Major depressive disorder, single episode, unspecified, G47.00 - Insomnia, unspecified, R25.1 - Tremor, unspecified, Z00.00 - Encounter for general adult medical examination without abnormal findings Lipid Panel Today F32.9 - Major depressive disorder, single episode, unspecified, G47.00 - Insomnia, unspecified, R25.1 - Tremor, unspecified, Z00.00 - Encounter for general adult medical examination without abnormal findings Vitamin D 25-OH Total Today F32.9 - Major depressive disorder, single episode, unspecified, G47.00 - Insomnia, unspecified, R25.1 - Tremor, unspecified, Z00.00 - Encounter for general adult medical examination without abnormal findings TSH reflex Free T4 Today F32.9 - Major depressive disorder, single episode, unspecified, G47.00 - Insomnia, unspecified, R25.1 - Tremor, unspecified, Z00.00 - Encounter for general adult medical examination without abnormal findings XR DEXA axial skeleton Today N95.9 - Unspecified menopausal and perimenopausal disorder US abdominal aortic aneurysm Today Z00.00 - Encounter for general adult medical examination without abnormal findings Influenza [id number] Immunization Today Z23 - Encounter for immunization Comprehensive Met. Panel Today F32.9 - Major depressive disorder, single episode, unspecified, G47.00 - Insomnia, unspecified, R25.1 - Tremor, unspecified, Z00.00 - Encounter for general adult medical examination without abnormal findings Hemoglobin A1c Today F32.9 - Major depressive disorder, single episode, unspecified, G47.00 - Insomnia, unspecified, R25.1 - Tremor, unspecified, Z00.00 - Encounter for general adult medical examination without abnormal findings HIV Ab/Ag Today F32.9 - Major depressive disorder, single episode, unspecified, G47.00 - Insomnia, unspecified, R25.1 - Tremor, unspecified, Z00.00 - Encounter for general adult medical examination without abnormal findings Celiac Disease Panel Today R19.7 - Diarrhea, unspecified TDaP Immunization Today Z23 - Encounter for immunization Referrals Pulmonology Referral F17.200 - Nicotine dependence, unspecified, uncomplicated Medications: New cholecalciferol (vitamin D3) 25 mcg PO DAILY 90 caps 3RF fluticasone propionate 50 mcg/actuation (Flonase Allergy Relief) administer into each nostril 1 spray intranasal DAILY 16 grams 3RF meloxicam 7.5 mg PO DAILY 60 tabs 3RF propranolol ER 60 mg PO BEDTIME 90 caps 3RF albuterol sulfate 90 mcg/actuation 1 inh inhalation Q4-6H PRN 1 ea 3RF shortness of breath or wheezing citalopram 20 mg PO DAILY 90 tabs 3RF melatonin 10 mg (2 x 5 mg) PO BEDTIME PRN 60 tabs 3RF sleep
[2025-08-04 15:13] VITALS: BP 120/68; PULSE 69; TEMP 36.4; O2SAT 98; BMI 37.1
--- OUTSIDE RECORDS SUMMARY | 2025-08-04 22:06 | XMS_ITS | Encounter Summary ---
Author Organization [facility] Address [address] [place] [address] Phone Care Team Providers Care Dairy Equipment Specialist Name Role Phone Aliyah Ramires Primary Care Provider [phone] Reason for Referral * MRI/CAT Scan - Closed Specialty Diagnoses / Procedures Referred By Ru kemp Referred To Contact Radiology Diagnoses Gross hematuria Flank pain Procedures CT Abdomen/Pelvis Aliyah Ramires PA Phone: tel: fax: [email or web address] Referral ID Status Reason Start Date Expiration Date Visits Re quested Visits Authorized [id number] Closed 04/19/2024 04/19/2025 1 1 Encounter Details Date Type Department Care Team (Latest Contact Info) Description 04/19/2024 Transcribe Orders Virtual Department [address] [place] [address] Aliyah Ramires PA [address] [place] [address] [email or web address] Gross hematuria (Primary Dx); Flank pain Social History Tobacco Use Types Packs/Day Years Used Date Smoking Tobacco: Former Smokeless Tobacco: Never Comments:quit 8 years ago Alcohol Use Standard Drinks/Week Comments Never 0 (1 standard drink = 0.6 oz pur e alcohol) Education Answer Date Recorded Are you interested in more education? Not on osmin e 01/16/2023 Are you concerned about learning? Not on file 01/16/2023 No 01/16/2023 No 01/16/2023 Digital Access Answer Date Recorded No 02/10/2023 No 02/10/2023 Reliable internet access at home? Not on file 02/10/2023 Device with a working camera? Not on file Intimate Partner Violence Answer Date R ecorded Are you denied basic needs s uch as food, clothing, or medical care? No 12/12/2022 In the past 12 months have y ou been in a relationship with a person who hurts, threatens, or tries to control you? No 12/12/2022 Are you denied basic needs s uch as food, clothing, or medical care? No 12/12/2022 In the past 12 months have y ou been in a relationship with a person who hurts, threatens, or tries to control you? No 12/12/2022 Comments No Sex and Gender Information Value Date Recorded Sex Assigned at Female 10/21/2021 2:57 PM EST Legal Sex Female 2:59 PM EDT Gender Identity Female 10/21/2021 2:57 PM EST Sexual Orientation Not on file documented as of this encounter Plan of Treatment Upcoming Encounters Date Type Department Care Team (Late st Contact Info) Description 09/06/2025 11:45 AM EST Office Visit [facility] [address] [place] [address] 3rd [facility], [address] [place] [address] Benja Collado MD [address] [place] [address], [address] [address] 10/20/2025 11:00 AM EST Office Visit [facility] Neurology [address] [place] [address] Benja Ma MD [address] [place] [address], [address] [place] [address] documented as of this encounter Results * CT ABDOMEN/PELVIS (KIDNEY STONE) WITHOUT CONTRAST (05/18/2024 1:18 PM EDT) Anatomical Region Laterality Modality Abdomen, Pelvis Computed Tomogra phy 05/24/2024 12:4 9 PM EDT Impressions 05/24/2024 12:52 PM EDT 1. Hepatic steatosis. 2. Cholelithiasis. 3. Right renal cyst. 4. No renal calculi. Narrative 05/24/2024 12:[address] ABDOMEN/PELVIS (KIDNEY STONE) WITHOUT CONTRAST Referring clinician's provided indication for this examination in [facility]: Outside Radiology Order; hematuria TECHNIQUE: Multidetector-row CT of the abdomen and pelvis was performed without intravenous contrast using tailored dose modulation techniques. Images were reconstructed in the axial, coronal, and sagittal planes. COMPARISON: CT ABDOMEN/PELVIS WITHOUT CONTRAST ABSENCE OF INTRAVENOUS CONTRAST DECREASES SENSITIVITY FOR DETECTION OF FOCAL LESIONS AND VASCULAR PATHOLOGY. FINDINGS: Lower chest: Clear lung bases. No effusions. Liver: Diffusely decreased density of the liver is compatible with steatosis. This lowers the sensitivity for focal lesions. No suspicious focal lesions. Biliary: No biliary ductal dilatation. Cholelithiasis. Spleen: No splenomegaly or focal lesions. Pancreas: No masses or ductal dilatation. Adrenal glands: No nodules. Kidneys/ureters: No solid masses or hydronephrosis. No stones. Right renal cyst Bowel: No dilation or wall thickening. Diverticulosis without CT evidence of diverticulitis. Normal appendix. Peritoneum/retroperitoneum: No masses, free air, or fluid. Lymph nodes: No lymphadenopathy. Pelvic organs/bladder: No masses. Vessels: No abdominal aortic aneurysm. Bones/soft tissues: No destructive osseous lesions. Procedure Note Deshaun Ruiz MD, LUIGI - 05/24/2024 CT ABDOMEN/PELVIS (KIDNEY STONE) WITHOUT CONTRAST Referring clinician's provided indication for this examination in [facility]:Outside Radiology Order; hematuria TECHNIQUE: Multidetector-row CT of the abdomen and pelvis was performedwithout intravenous contrast using tailored dose modulation techniques.Images were reconstructed in the axial, coronal, and sagittal planes. COMPARISON: CT ABDOMEN/PELVIS WITHOUT CONTRAST ABSENCE OF INTRAVENOUS CONTRAST DECREASES SENSITIVITY FOR DETECTION OFFOCAL LESIONS AND VASCULAR PATHOLOGY. FINDINGS: Lower chest: Clear lung bases. No effusions. Liver: Diffusely decreased density of the liver is compatible withsteatosis. This lowers the sensitivity for focal lesions. No suspiciousfocal lesions. Biliary: No biliary ductal dilatation. Cholelithiasis. Spleen: No splenomegaly or focal lesions. Pancreas: No masses or ductal dilatation. Adrenal glands: No nodules. Kidneys/ureters: No solid masses or hydronephrosis. No stones. Right renalcyst Bowel: No dilation or wall thickening. Diverticulosis without CT evidenceof diverticulitis. Normal appendix. Peritoneum/retroperitoneum: No masses, free air, or fluid. Lymph nodes: No lymphadenopathy. Pelvic organs/bladder: No masses. Vessels: No abdominal aortic aneurysm. Bones/soft tissues: No destructive osseous lesions. IMPRESSION: 1. Hepatic steatosis. 2. Cholelithiasis. 3. Right renal cyst. 4. No renal calculi. Aliyah GARRETT [facility] ABD/PELVIS Final Result documented in this encounter Visit Diagnoses Diagnosis Gross hematuria- Primary Flank pain Abdominal pain, unspecified site Gross hematuria Flank pain Abdominal pain, unspecified site documented in this encounter Additional Health Concerns Infection Onset Date Last Indicated Resolved Time CoV-Risk 11/14/2024 11/14/2024 11/25/2024 1:22 AM EST CoV-Risk 01/05/2025 01/05/2025 01/16/2025 1:23 AM EDT documented as of this encounter Care Teams Dairy Equipment Specialist Relationship Specialty Start Date End Date Ailyah [place] [address] [email or web address] PCP - General Physician Turfgrass Technician 12/12/22 documented as of this encounter Additional Source Comments The information contained in this document represents components of the legal health record. It is not the complete legal health record.[facility]
--- OUTSIDE RECORDS SUMMARY | 2025-08-04 22:06 | XMS_ITS | Encounter Summary ---
Author Organization [facility] Address [address] [place] [address] Phone Care Team Providers Care Health Promotion Manager Name Role Phone Aliyah Ramires Primary Care Provider [phone] Encounter Details Date Type Department Care Team (Latest Contact Info) Description 02/24/2024 Transcribe Orders [facility] [address] [facility] 2nd [place] [address] Marisa Myers NP [address] [place] [address] Irritable bowel syndrome with diarrhea (Primary Dx) Social History Tobacco Use Types Packs/Day Years [...] Description 09/06/2025 11:45 AM EST Office Visit [facility] [address] [place] [address] 3rd Floor, [address] [place] [address] Benja Collado MD [address] [place] [address], [address] [address] [email or web address] 10/20/2025 11:00 AM EST Office Visit [facility] Neurology [address] [place] [address] Benja Ma MD [address] [place] [address], 2nd [place] [address] [email or web address] documented as of this encounter Results * (ABNORMAL) C-Reactive Protein (02/24/2024 10:10 AM EDT) C REACTIVE PROTEIN 7.0(H) 0.0 - 4.0 mg/L [facility] Blood 02/24/2024 10:1 0 AM EDT 02/24/2024 10:12 AM EDT us Marisa Myers SEXOLOGIST LAB BLOOD BKR ORDERABLES Final Result [facility] [address] [place] [address] * (ABNORMAL) Comprehensive metabolic panel (02/24/2024 10:10 AM EDT) SODIUM 141 133 - 146 mmol/L [facility] POTASSIUM 4.1 3.3 - 5.1 mmol/L [facility] CHLORIDE 103 96 - 108 mmol/L [facility] CO2 28 21 - 35 mmol/L [facility] BUN 11 6 - 19 mg/dL [facility] CREATININE 0.50 0.5 - 1.5 mg/dL [facility] GLUCOSE 143(H) 70 - 99 mg/dL [facility] ALBUMIN 4.3 3.9 - 4.8 g/dL [facility] TOTAL PROTEIN 7.3 6.5 - 8.0 g/dL [facility] CALCIUM 9.2 8.4 - 10.3 mg/dL [facility] ALKALINE PHOSPHATASE 102 39 - 117 U/L [facility] TOTAL BILIRUBIN 0.4 0.0 - 1.2 mg/dL [facility] AST 24 0 - 37 U/L [facility] ALT 20 0 - 40 U/L [facility] GLOBULIN 3.0 1 - 4.8 g/dL [facility] EGFR 101 >59 mL/min/1.7 3m2 [facility] Comment:Estimated glomerular filtration rate calculated using the CKD-EPI refit equation. ANION GAP 14 10 - 20 mmol/L [facility] Blood 02/24/2024 10:1 0 AM EDT 02/24/2024 10:12 AM EDT Marisa Myers NP LAB BLOOD BKR ORDERABLES Final Result [facility] [address] [place] [address] * CBC (02/24/2024 10:10 AM EDT) WBC 8.78 4.00 - 11.00 K/uL [facility] RBC 4.83 3.72 - 5.30 M/uL [facility] HGB 14.9 11.4 - 15.9 g/dL [facility] HCT 45.1 34.2 - 46.8 % [facility] PLT 236 140 - 430 K/uL [facility] MCV 93.4 78.0 - 97.0 fL [facility] MCH 30.8 25.0 - 33.0 pg [facility] MCHC 33.0 32.0 - 36.0 g/dL [facility] RDW 12.9 11.0 - 16.0 % [facility] MPV 10.6 8.4 - 12.8 fl [facility] Blood 02/24/2024 10:1 0 AM EDT 02/24/2024 10:12 AM EDT Marisa Myers NP LAB BLOOD BKR ORDERABLES Final Result Performing Organization Address City/[facility]/ZIP Co de Phone Number [address] [address] * (ABNORMAL) Immunoglobulin A (02/24/2024 10:10 AM EDT) IgA 415(H) 70 - 400 mg/dL [facility] Blood 02/24/2024 10:1 0 AM EDT 02/24/2024 10:12 AM EDT Marisa Myers NP LAB BLOOD BKR ORDERABLES Final Result Performing Organization Address [facility]/ZIP Co de Phone Number [address] [address] * Tissue transglutaminase IgA (02/24/2024 10:10 AM EDT) TTG IGA ANTIBODY <1.2 <4.0 (Negative) U/mL [facility] Blood 02/24/2024 10:1 0 AM EDT 02/24/2024 10:12 AM EDT Marisa Myers NP LAB BLOOD BKR ORDERABLES Final Result Performing Organization Address City/[facility]/ZIP Co de Phone Number [facility] [address] [place] [address] documented in this encounter Visit Diagnoses Diagnosis Irritable bowel syndrome with diarrhea- Primary Irritable bowel syndrome documented in this encounter Additional Health Concerns Infection Onset Date Last Indicated Resolved Time CoV-Risk 11/14/2024 11/14/2024 11/25/2024 1:22 AM EST CoV-Risk 01/05/2025 01/05/2025 01/16/2025 1:23 AM EDT documented as of this encounter Care Teams Health Promotion Manager Relationship Specialty Start Date End Date Aliyah Ramires PA [address] [place] [address] [email or web address] PCP - General Physician Manager Of Creative Services 12/12/22 documented as of this encounter Additional Source Comments The information contained in this document represents components of the legal health record. It is not the complete legal health record.[facility]
--- OUTSIDE RECORDS SUMMARY | 2025-08-04 22:06 | XMS_ITS | Encounter Summary ---
Author Organization [facility] Address [address] [facility] [address] [place] [address] Phone Care Team Providers Care Urgent Care Name Role Phone Aliyah Ramires Primary Care Provider [phone] Encounter Details Date Type Department Care Team ([facility] st Contact Info) Description 02/03/2024 Transcribe Orders [facility] Phleb [facility] [address] [place] [address] Aliyah Ramires PA [address] [place] [address] [email or web address] Social History Tobacco Use Types Packs/Day Years [...] Description 09/06/2025 11:45 AM EST Office Visit [facility] [address] [place] [address] 3rd Floor, [address] [place] [address] Benja Collado MD [address] [place] [address] [email or web address] 10/20/2025 11:00 AM EST Office Visit [facility] Neurology [address] [place] [address] Benja Ma MD [address] [place] [address], 2nd [place] [address] [email or web address] documented as of this encounter Visit Diagnoses Not on filedocumented in this encounter Additional Health Concerns Infection Onset Date Last Indicated Resolved Time CoV-Risk 11/14/2024 11/14/2024 11/25/2024 1:22 AM EST CoV-Risk 01/05/2025 01/05/2025 01/16/2025 1:23 AM EDT documented as of this encounter Care Teams Urgent Care Relationship Specialty Start Date End Date [place] [address] [email or web address] PCP - General Physician Criminal Justice Social Worker 12/12/22 documented as of this encounter Additional Source Comments The information contained in this document represents components of the legal health record. It is not the complete legal health record.[facility]
--- OUTSIDE RECORDS SUMMARY | 2025-08-04 22:06 | XMS_ITS | Encounter Summary ---
Author Organization [facility] Address [address] [address] Phone Care Team Providers Care Roving Inspector Name Role Phone Aliyah Ramires Primary Care Provider [phone] Encounter Details Date Type Department Care Team (Late st Contact Info) Description 02/03/2024 Ancillary Orders [facility], X-[address] [address] Aliyah Ramires PA [address] [place] [address] [email or web address] Pain (Primary Dx) Social History Tobacco Use Types [...] Description 09/06/2025 11:45 AM EST Office Visit [facility] [address] [place] [address] 3rd Floor, [address] [place] [address] Benja Collado MD [address] [place] [address], [address] [address] 10/20/2025 11:00 AM EST Office Visit [facility] Neurology [address] [place] [address] [place] [address] Benja Ma MD [address] [place] [address], 2nd [place] [address] [email or web address] documented as of this encounter Results * XR RIBS 3 OR MORE VIEWS WITH PA CHEST (RIGHT) (02/03/2024 10:17 AM EDT) Anatomical Region Laterality Modality Chest Computed Radiogr aphy 02/03/2024 11:0 2 AM EDT Impressions 02/03/2024 11:03 AM EDT No displaced rib fracture. Narrative 02/03/2024 11:03 AM EDT XR RIBS 3 OR MORE VIEWS WITH PA CHEST (RIGHT) Referring clinician's provided indication for this examination in [facility]: S/P Fall COMPARISON: None FINDINGS: No displaced rib fracture. PA evaluation of the chest demonstrates no focal consolidation, pleural effusion, pulmonary edema, or pneumothorax. Cardiomediastinal silhouette is normal. Procedure Note Maximino Teixeira MD, LUIGI - 02/03/2024 XR RIBS 3 OR MORE VIEWS WITH PA CHEST (RIGHT) Referring clinician's provided indication for this examination in [facility]:S/P Fall COMPARISON: None FINDINGS: No displaced rib fracture. PA evaluation of the chest demonstrates no focal consolidation, pleuraleffusion, pulmonary edema, or pneumothorax. Cardiomediastinal silhouetteis normal. IMPRESSION: No displaced rib fracture. Aliyah GARRETT IMG XR CHEST Final Result documented in this encounter Visit Diagnoses Diagnosis Pain- Primary Generalized pain Pain Generalized pain documented in this encounter Additional Health Concerns Infection Onset Date Last Indicated Resolved Time CoV-Risk 11/14/2024 11/14/2024 11/25/2024 1:22 AM EST CoV-Risk 01/05/2025 01/05/2025 01/16/2025 1:23 AM EDT documented as of this encounter Care Teams Roving Inspector Relationship Specialty Start Date End Date Aliyah [place] [address] [email or web address] PCP - General Physician Computer Network And Systems Engineer 12/12/22 documented as of this encounter Additional Source Comments The information contained in this document represents components of the legal health record. It is not the complete legal health record.[facility]
--- OUTSIDE RECORDS SUMMARY | 2025-08-04 22:06 | XMS_ITS | Encounter Summary ---
Author Organization [facility] Address [address] [place] [address] Phone Care Team Providers Care Log Cut Off Sawyer Name Role Phone Aliyah Ramires Primary Care Provider [phone] Encounter Details Date Type Department Care Team (Late st Contact Info) Description 01/06/2025 Ancillary Orders [facility], X-[address] [address] Aliyah Ramires PA [address] [place] [address] [email or web address] Acute cough (Primary Dx) Social History Tobacco Use Types [...] Description 09/06/2025 11:45 AM EST Office Visit [facility] [address] [place] [address] 3rd Floor, [address] [place] [address] Benja Collado MD [address] [place] [address], [address] [address] 10/20/2025 11:00 AM EST Office Visit [facility] Neurology [address] [place] [address] Benja Ma MD [address] [place] [address], 2nd [place] [address] documented as of this encounter Results * XR CHEST PA AND LATERAL 2 VIEWS (01/06/2025 4:07 PM EDT) Anatomical Region Laterality Modality Chest Computed Radiogr aphy 01/06/2025 4:15 PM EDT Impressions 01/06/2025 4:16 PM EDT No acute changes. Narrative 01/06/2025 4:16 PM EDT XR CHEST PA AND LATERAL 2 VIEWS Referring clinician's provided indication for this examination in Epic: Cough COMPARISON: Chest x-ray 12/04/2023. FINDINGS: Devices/Tubes/Lines: None. Lungs: No evidence of infiltrates or mass. Pulmonary vascularity is normal. Pleura: No pleural effusion or pneumothorax. Heart/Mediastinum: Stable cardiomegaly [place] contour. Bones/Soft Tissues: Kyphosis. No significant change. Procedure Note Donavon Negrete MD - 01/06/2025 XR CHEST PA AND LATERAL 2 VIEWS Referring clinician's provided indication for this examination in Epic:Cough COMPARISON: Chest x-ray 12/04/2023. FINDINGS: Devices/Tubes/Lines: None. Lungs: No evidence of infiltrates or mass. Pulmonary vascularity isnormal. Pleura: No pleural effusion or pneumothorax. Heart/Mediastinum: Stable cardiomegaly [place] contour. Bones/Soft Tissues: Kyphosis. No significant change. IMPRESSION: No acute changes. Aliyah GARRETT IMG XR CHEST Final Result documented in this encounter Visit Diagnoses Diagnosis Acute cough- Primary Acute cough documented in this encounter Additional Health Concerns Infection Onset Date Last Indicated Resolved Time CoV-Risk 01/05/2025 01/05/2025 01/16/2025 1:23 AM EDT documented as of this encounter Care Teams Log Cut Off Sawyer Relationship Specialty Start Date End Date Aliyah Ramires PA [address] [place] [address] [email or web address] PCP - General Physician Grinder Lap 12/12/22 documented as of this encounter Additional Source Comments The information contained in this document represents components of the legal health record. It is not the complete legal health record.[facility]
--- OUTSIDE RECORDS SUMMARY | 2025-08-04 22:07 | XMS_ITS | Clinical Summary ---
Author Organization [facility] Address [address] [address] Phone Care Team Providers Care Instrumentation Engineering Technician Name Role Phone Aliyah Ramires Primary Care Provider [phone] Allergies No known active allergies Medications ibuprofen (ADVIL,MOTRIN) 400 MG tablet as needed. 9 Active calcium carbonate/vitam in D3 (CALCIUM 500 + D ORAL) Take by mouth. A ctive calcium carbonate (CALCIUM 600 ORAL) Take by mouth 2 (two) times a day. Active mineral oil-isopropyl myristat (EUCERIN) Lotn Apply topically daily. Active propranoloL (INDERAL LA) 60 mg 24 hr capsuleIndicati ons:Tremors of nervous system Take 1 capsule (60 mg total) by mouth daily. 90 capsule 3 5 Active meloxicam (MOBIC) 7.5 MG tablet TOME RUDOLPH TABLETA VIA ORAL RUDOLPH VEZ TODOS [place] CON ALIMENTOS 5 Active citalopram (CELEXA) 20 MG tablet TOME RUDOLPH TABLETA VIA ORAL CADA RONNA 5 Active fluticasone propionate (FLONASE) 50 mcg/actuation nasal spray 1 spray by Nasal route nightly at bedtime. 16 g 11 5 08/22/20 25 Active Active Problems Problem Noted Date Diagnosed Date Postmenopausal bleeding 02/24/2019 Overview (02/24/2019): History of PMB 01/2017 USN 02/09/17 revealed 1.3 cm endometrial stripe with cystic changes Embx 02/19/17 was inadequate for diagnosis D&C 04/08/17 benign endometrial polyp Now reports light vaginal bleeding x 3 days after pap smear with PCP 02/07/19 (no results) Per patient PCP saw endocervical polyp Bleeding now resolved Assessment & Plan (02/24/2019 10:36 AM EDT): Given association with pap smear patient reassured unlikely to be concern No polyp seen on exam today Will obtain TV USN to evaluate endometrial stripe, sample if double layer thickness stripe >= 5mm Encounters Date Type Department Care Team Description 05/24/2025 11:15 AM EDT Office [facility] [address] [place], [place] [id number] Benja Collado MD NIKOLAY (obstructive sleep apnea) (Primary Dx); Primary insomnia from Last 3 Months Family History Medical History Relation Comments Leukemia Father Relation Status Comments Brother Alive Father Maternal Grandfather Maternal Grandmother Mother Alive Paternal Grandfather Paternal Grandmother Social History Tobacco Use Types Packs/Day Years Used Date Smoking Tobacco: Former Smokeless Tobacco: Never Tobacco Cessation:Counseling Given: Not Answered Comments:quit 2013 Alcohol Use Standard Drinks/Week Comments Never 0 [...] PM EST Sexual Orientation Not on file Last Filed Vital Signs Vital Sign Reading Time Taken Comments Blood Pressure 112/68 05/24/2025 10:42 AM EDT Pulse 63 05/24/2025 10:42 AM EDT Temperature 36.3 C (97.3 F) 02/17/2025 11:21 AM EDT Respiratory Rate 13 12/12/2022 2:02 PM EDT Oxygen Saturation 95% 05/24/2025 10:42 AM EDT Inhaled Oxygen Concentration - - Weight 83.5 kg (184 lb) 05/24/2025 10:42 AM EDT Height 147.3 cm (4' 9.99 ) 05/24/2025 10:42 AM E DT Body Mass Index 38.47 05/24/2025 10:42 AM EDT Plan of Treatment Upcoming Encounters Date Type Department Care Team (Late st Contact Info) Description 09/06/2025 11:45 AM EST Office Visit [facility] [address] Floor, [address] [place] [address] Benja Collado MD [address] [place] [address], [address] [address] 10/20/2025 11:00 AM EST Office Visit [facility] Neurology [address] [place] [address] Benja Ma MD [address] [place] [address], 2nd [place] [address] Health Maintenance Due Date Last Done Comments DEPRESSION SCREENING 1965 SMOKING Hx and SMOKELESS TOBACCO SCREENING 1966 HEPATITIS C SCREENING 1971 MAMMOGRAM 1993 COLOGUARD 1998 FIT TEST 1998 FOBT 1998 SIGMOIDOSCOPY 1998 VIRTUAL COLONOSCOPY 1998 ZOSTER VACCINES (1 of 2) 2003 PNEUMOCOCCAL VACCINES (50+ years) (2 of 2 - PCV) 09/28/2007 09/28/2006 OSTEOPOROSIS SCREENING INITIAL (ONE-TIME) 2018 Adult Td,Tdap Booster 08/27/2019 08/27/2009, 998 INFLUENZA VACCINE (#1) 2025 7, 06/21/2013, 08/26/2012, Additional history exists COVID-19 VACCINE (3 - season) 2025 01/14/2021, 12/17/2020 RSV VACCINE (1 - 1-dose 75+ series) 2028 LIPID PANEL 07/20/2029 07/20/2024, 11/0 11/2022, 12/06/2021 COLONOSCOPY 12/12/2032 12/12/2022 COLORECTAL CANCER SCREENING 12/12/2032 HEPATITIS A VACCINES Aged Out No long er eligible based on patient's age to complete this topic HIB VACCINES Aged Out No longer eligi ble based on patient's age to complete this topic IPV VACCINES Aged Out No longer eligi ble based on patient's age to complete this topic MENINGOCOCCAL VACCINES (ACWY) Aged Out No longer eligible based on patient's age to complete this topic MENINGOCOCCAL VACCINES (B) Aged Out N o longer eligible based on patient's age to complete this topic Medical Devices Not on file Procedures Procedure Name Priority Date/Time Associated Diagnosis Comments LIPID PANEL Routine 07/20/2024 9:26 AM EDT Elevated glucose ENDOSCOPY, COLON 12/12/2022 1:14 PM EDT from Last 3 Months or Most Recently Relevant to Health Maintenance Results * (ABNORMAL) Lipid panel (07/20/2024 9:26 AM EDT) HDL 46 mg/dL [facility] Comment: Interpretation <40 mg/dL: Low HDL cholesterol (major risk factor for CHD) Greater than or equal to 60 mg/dL: High HDL cholesterol ( negative risk factor for CHD) HDL - cholesterol is affected by a number of factors, e.g. smoking, excerise, hormones, sex and age. CHOLESTEROL 245(H) 0 - 240 mg/dL [facility] TRIGLYCERIDES 162(H) 30 - 160 mg/dL [facility] LDL 167(H) 50 - 129 mg/dL [facility] Comment: LDL levels in terms of risk for coronary heart disease: <100 mg/dL: Optimal 100-129 mg/dL: Near or above optimal 130-159 mg/dL: Borderline high 160-189 mg/dL: High >190 mg/dL: Very High CARDIAC RISK RATIO 5.3(H) 3.3 - 4.4 C [facility] Blood 07/20/2024 9:26 AM EDT 07/20/2024 11:00 AM EDT us Aliyah GARRETT LAB BLOOD BKR ORDERABLES Final Result Performing Organization Address City/State/[facility] Co de Phone Number [address] [address] * ENDOSCOPY, COLON (12/12/2022 1:14 PM EDT) Narrative Transcriptions Bhanu Levine MD - 12/12/2022 1:14 PM EDT [facility] Patient Name: Tamar Kelley Attending MD:: BHANU LEVINE MD, Procedure Date: 12/12/2022 1:14 PM Date of : 1955 Age: 67 Admit Type: Outpatient Gender: Female Room: [place] [address] Referring MD: Aliyah Ramires MD Exam Type: Colonoscopy Indications: Last colonoscopy: April 2021, Chronic diarrhea, Clinically significant diarrhea of unexplainedorigin, Personal history of colonic polyps Medications: Propofol per Anesthesia Procedure: Informed consent was obtained from the patientafter discussion of the indications, limitations, alternatives, benefits, and risks of the procedure. Risks specifically discussed include but are not limited to medication reactions, missed lesions, bleeding, perforation, or the need for emergent surgery. Throughout the procedure, the patient's blood pressure, pulse, end-tidal CO2, and oxygensaturations were monitored continuously. The Olympus pediatric variable colonoscopePCF-[id number] #6 was introduced through the anus and advanced tothe cecum, identified by the appendiceal orifice, ileocecal valve and palpation. The colonoscopy was performed without difficulty. The patient tolerated the procedure fairly well. The quality of the bowel preparation was good. The ileocecal valve,appendiceal orifice, and rectum were photographed. Complications: No immediate complications. Estimated blood loss: Minimal. Findings: The perianal and digital rectal examinations were normal. Pertinent negatives include normalsphincter tone. A patchy area of mildly altered vascular and erythematous mucosa was found in the sigmoid colonand in the descending colon. Biopsies were taken with a cold forceps for histology. This was biopsied witha cold forceps for histology. Estimated blood losswas minimal. Normal mucosa was found from splenic flexure tocecum. Biopsies for histology were taken with a coldforceps from the ascending colon and transverse colon for evaluation of microscopic colitis. Estimated blood loss was minimal. Many small-mouthed diverticula were found in the sigmoid colon. Retroflexion in the right colon was performed. Impression: - Altered vascular and erythematous mucosa in the sigmoid colon and in the descending colon.Biopsied. - Normal mucosa from splenic flexure to cecum. Biopsied. - Diverticulosis in the sigmoid colon. Recommendation: - I will send results of your biopsy to you andyour referring physician or provider. If you do notreceive notification within 3 weeks, please call ouroffice. - Repeat colonoscopy in 5 years for surveillance. - Continue present medications. BHANU LEVINE MD 12/12/2022 1:42:03 PM This report has been signed electronically. Number of Addenda: 0 Note Initiated On: 12/12/2022 1:14 PM Procedure Code(s): --- Professional --- 90023, Colonoscopy, flexible; with biopsy, single or multiple --- Technical --- 51493, Colonoscopy, flexible; with biopsy, single or multiple Diagnosis Code(s): --- Professional --- K63.89, Other specified diseases of intestine K52.9, Noninfective gastroenteritis and colitis, unspecified R19.7, Diarrhea, unspecified Z86.010, Personal history of colonic polyps K57.30, Diverticulosis of large intestine without perforation or abscess without bleeding --- Technical --- K63.89, Other specified diseases of intestine K52.9, Noninfective gastroenteritis and colitis, unspecified R19.7, Diarrhea, unspecified Z86.010, Personal history of colonic polyps K57.30, Diverticulosis of large intestine without perforation or abscess without bleeding CPT copyright 2021 [employer]. All rights reserved. The codes documented in this report are preliminary and upon certified medical records coder reviewmay be revised to meet current compliance requirements. Procedure Date: 12/12/2022 1:14:37 PM [address] [place] [address] Aliyah GARRETT GI PROCEDURE ORDERABLES Final R esult from Last 3 Months or Most Recently Relevant to Health Maintenance Insurance [facility] MEDICARE REPLACEMENT MEDICARE REPLACEMENT MEDICARE REPLACEMENT Member Subscriber Plan / Payer (Ef fective 2025-) Name:KelleyRocíoa Relation to Subscriber:Self Name:Kelley Tamar Payer ID:[id number] (NAIC) Type:Medicare Address: [place] [id number] MEDICARE REPLACEMENT MEDICARE REPLACEMENT [facility] MEDICARE REPLACEMENT [address] [place] [id number] [address] [place] [phone] [place] [address] Care Teams Instrumentation Engineering Technician Relationship Specialty Start Date End Date Aliyah Ramires PA [address] [place] [address] [email or web address] PCP - General Physician Mill Machinist 12/12/22 Additional Source Comments The information contained in this document represents components of the legal health record. It is not the complete legal health record.[facility]
--- OUTSIDE RECORDS SUMMARY | 2025-08-04 22:07 | XMS_ITS | Encounter Summary ---
Author Organization [facility] Address [address] [facility] [address] [place] [address] Phone Care Team Providers Care Software Release Manager Name Role Phone Tatiana Grimes MD Primary Care Provider Aliyah Ramires Primary Care Provider [phone] Encounter Details Date Type Department Care Team (Late Contact Info) Description 10/14/2022 Procedure Pass [facility] Endoscopy Admitting Dept Virtual Department [address] [place] [address] Social History Tobacco Use Types Packs/Day Years Used Date Smoking Tobacco: Former Smokeless Tobacco: Never Comments:quit 4 years ago Alcohol Use Standard Drinks/Week Comments Never 0 (1 standard drink = 0.6 oz pur e alcohol) Comments No Sex and Gender Information Value Date Recorded Sex Assigned at Female 10/21/2021 2:57 PM EST Legal Sex Female 2:59 PM EDT Gender Identity Female 10/21/2021 2:57 PM EST Sexual Orientation Not on file documented as of this encounter Plan of Treatment Upcoming Encounters Date Type Department Care Team (Late Contact Info) Description 09/06/2025 11:45 AM EST Office Visit [facility] [address] [place] [address] 3rd Floor, [address] [place] [address] Benja Collado MD 22 [facility], [address] [address] 10/20/2025 11:00 AM EST Office Visit [facility] Neurology [address] [place] [address] Benja Ma MD 22 [facility], 2nd [place] [address] [email or web address] documented as of this encounter Visit Diagnoses Not on filedocumented in this encounter Additional Health Concerns Infection Onset Date Last Indicated Resolved Time CoV-Risk 11/14/2024 11/14/2024 11/25/2024 1:22 AM EST CoV-Risk 01/05/2025 01/05/2025 01/16/2025 1:23 AM EDT documented as of this encounter Care Teams Software Release Manager Relationship Specialty Start Date End Date Tatiana Grimes MD [address] [place] [phone] [email or web address] PCP - General Internal Medicine 09/24/21 12/11/22 Aliyah Ramires PA [address] [place] [phone] [email or web address] PCP - General Physician Head Resident 12/12/22 documented as of this encounter Additional Source Comments The information contained in this document represents components of the legal health record. It is not the complete legal health record.[facility]
--- OUTSIDE RECORDS SUMMARY | 2025-08-04 22:07 | XMS_ITS | Encounter Summary ---
Author Organization [facility] Address [address] [address] Phone Care Team Providers Care Political Aide Name Role Phone Aliyah Ramires Primary Care Provider Encounter Details Date Type Department Care Team (Late st Contact Info) Description 04/19/2024 Procedure Pass [facility], Ct Scan - [address] [address] Social History Tobacco Use Types Packs/Day Years [...] Description 09/06/2025 11:45 AM EST Office Visit [facility] [address] [place] [address] 3rd Floor, [address] [place] [address] Benja Collado MD [address] [place] [address], [address] [address] 10/20/2025 11:00 AM EST Office Visit [facility] Neurology [address] [place] [address] Benja Ma MD [address] [place] [address], 2nd [place] [address] [email or web address] documented as of this encounter Visit Diagnoses Not on filedocumented in this encounter Additional Health Concerns Infection Onset Date Last Indicated Resolved Time CoV-Risk 11/14/2024 11/14/2024 11/25/2024 1:22 AM EST CoV-Risk 01/05/2025 01/05/2025 01/16/2025 1:23 AM EDT documented as of this encounter Care Teams Political Aide Relationship Specialty Start Date End Date Aliyah Ramires PA [address] [place] [address] [email or web address] PCP - General Physician Medical Registrar 12/12/22 documented as of this encounter Additional Source Comments The information contained in this document represents components of the legal health record. It is not the complete legal health record.[facility]
--- OUTSIDE RECORDS SUMMARY | 2025-08-04 22:07 | XMS_ITS | Encounter Summary ---
Author Organization [facility] Address [address] [facility] [address] [place] [address] Phone Care Team Providers Care Waterfront Director Name Role Phone Tatiana Grimes MD Primary Care Provider Aliyah Ramires Primary Care Provider [phone] Encounter Details Date Type Department Care Team (Late st Contact Info) Description 05/19/2022 Ancillary Orders Virtual Department [address] [place] [address] Tatiana Grimes MD [address] [place] [address] [email or web address] Mass of lower leg, unspecified laterality Social History Tobacco Use Types Packs/Day Years [...] Description 09/06/2025 11:45 AM EST Office Visit [facility] [address] [place] [address] 3rd Floor, [address] [place] [address] Benja Collado MD 22 [facility], [address] [place] [address] [place] [address] 10/20/2025 11:00 AM EST Office Visit [facility] Neurology [address] [place] [address] Benja Ma MD 22 [facility], 2nd [place] [address] [email or web address] documented as of this encounter Results * US LOWER EXTREMITY NON-VASCULAR LIMITED (RIGHT) (05/19/2022 3:14 PM EDT) Anatomical Region Laterality Modality Hip Right, Thigh Right, Knee Right, Leg Right, Ankle Right, Foot Right Ultrasound 05/19/2022 4:52 PM EDT Impressions 05/19/2022 4:55 PM EDT 1.0 cm hypoechoic lesion without robust internal vascularity corresponds the palpable abnormality. Findings are nonspecific sonographically. Continued clinical follow-up recommended to ensure benign behavior. If further characterization is required, histologic correlation may be considered. Narrative 05/19/2022 4:55 PM EDT TECHNIQUE: US LOWER EXTREMITY NON-VASCULAR LIMITED (RIGHT) Focused sonographic evaluation of the right lateral calf COMPARISON: There is no prior study available for comparison FINDINGS: Corresponding to the palpable abnormality at the right lateral calf is a nonspecific hypoechoic 1.0 x 0.4 x 0.7 cm hypoechoic lesion immediately superficial to the muscle. There is no significant internal vascularity. The overlying subcutaneous soft tissues are normal in appearance sonographically. Procedure Note Melissa Fontaine MD - 05/19/2022 TECHNIQUE: US LOWER EXTREMITY NON-VASCULAR LIMITED (RIGHT) Focused sonographic evaluation of the right lateral calf COMPARISON: There is no prior study available for comparison FINDINGS: Corresponding to the palpable abnormality at the right lateral calf is anonspecific hypoechoic 1.0 x 0.4 x 0.7 cm hypoechoic lesion immediatelysuperficial to the muscle. There is no significant internal vascularity.The overlying subcutaneous soft tissues are normal in appearancesonographically. IMPRESSION: 1.0 cm hypoechoic lesion without robust internal vascularity correspondsthe palpable abnormality. Findings are nonspecific sonographically.Continued clinical follow- up recommended to ensure benign behavior. Iffurther characterization is required, histologic correlation may beconsidered. Tatiana Grimes MD IMG US EXTREMITY Final Resu lt documented in this encounter Visit Diagnoses Diagnosis Mass of lower leg, unspecified laterality Mass of lower leg, unspecified laterality documented in this encounter Additional Health Concerns Infection Onset Date Last Indicated Resolved Time CoV-Risk 11/14/2024 11/14/2024 11/25/2024 1:22 AM EST CoV-Risk 01/05/2025 01/05/2025 01/16/2025 1:23 AM EDT documented as of this encounter Care Teams Waterfront Director Relationship Specialty Start Date End Date Tatiana Grimes MD [address] [place] [address] [email or web address] PCP - General Internal Medicine 09/24/21 12/11/22 Aliyah Ramires PA [address] [place] [phone] [email or web address] PCP - General Physician Home Health Care Social Worker 12/12/22 documented as of this encounter Additional Source Comments The information contained in this document represents components of the legal health record. It is not the complete legal health record.[facility]
--- OUTSIDE RECORDS SUMMARY | 2025-08-04 22:08 | XMS_ITS | Encounter Summary ---
Author Organization [facility] Address [address] [facility] [address] [place] [address] Phone Care Team Providers Care Wildland Fire Fighter Name Role Phone Ttaiana Grimes MD Primary Care Provider Aliyah Ramires Primary Care Provider [phone] Encounter Details Date Type Department Care Team (Late st Contact Info) Description 02/28/2022 Procedure Pass [facility], [address] [address] Social History Tobacco Use Types Packs/Day Years [...] Description 09/06/2025 11:45 AM EST Office Visit [facility] [address] [place] [address] 3rd Floor, [address] [place] [address] Benja Collado MD 22 [facility], [address] [place] [address] 10/20/2025 11:00 AM EST Office Visit [facility] [place] [address] Benja Ma MD [address] [facility], 2nd [place] [address] [email or web address] documented as of this encounter Visit Diagnoses Not on filedocumented in this encounter Additional Health Concerns Infection Onset Date Last Indicated Resolved Time CoV-Risk 11/14/2024 11/14/2024 11/25/2024 1:22 AM EST CoV-Risk 01/05/2025 01/05/2025 01/16/2025 1:23 AM EDT documented as of this encounter Care Teams Wildland Fire Fighter Relationship Specialty Start Date End Date Tatiana Grimes MD [address] [place] [email or web address] PCP - General Internal Medicine 09/24/21 12/11/22 Aliyah Ramires PA [address] [place] [phone] [email or web address] PCP - General Physician Museum Specialist 12/12/22 documented as of this encounter Additional Source Comments The information contained in this document represents components of the legal health record. It is not the complete legal health record.[facility]
--- OUTSIDE RECORDS SUMMARY | 2025-08-04 22:08 | XMS_ITS | Encounter Summary ---
Author Organization [facility] Address [address] [facility] [address] [place] [address] Phone Care Team Providers Care Education Paraprofessional Name Role Phone Tatiana Grimes MD Primary Care Provider Aliyah Ramires Primary Care Provider Encounter Details Date Type Department Care Team (Latest Contact Info) Description 01/13/2022 Transcribe Orders [facility] [address] 2nd [place] [address] Deshaun Godinez MD 10 [facility] 2 [place] [address] [email or web address] Diarrhea, unspecified type (Primary Dx) Social History Tobacco Use Types [...] Description 09/06/2025 11:45 AM EST Office Visit [facility] [address] [facility] 3rd Floor, [address] [place] [address] Benja Collado MD [address] [facility], [address] [place] [address] [email or web address] 10/20/2025 11:00 AM EST Office Visit [facility] Neurology [address] [place] [address] Benja Ma MD 22 [facility], 2nd [place] [address] [email or web address] documented as of this encounter Results * Calprotectin, stool (01/13/2022 11:37 AM EDT) STOOL CALPROTECTIN 39 mcg/g [facility]Zia [facility] Comment: (NOTE) Reference Range: <50 Normal 50-120 Borderline >120 Elevated Calprotectin in Crohn's disease and ulcerative colitis can be five to several thousand times above the reference population (50 mcg/g or less). Levels are usually 50 mcg/g or less in healthy patients and with irritable bowel syndrome. Repeat testing in 4-6 weeks is suggested for borderline values. Stool (Stool) 01/13/2022 11: 37 AM EDT 01/13/2022 11:42 AM EDT Deshaun Godinez MD LAB BODY FLUIDS AND STOOL ROLANDO WALKER Final Result [facility]MARNI [facility] [address] [place] [address] documented in this encounter Visit Diagnoses Diagnosis Diarrhea, unspecified type- Primary documented in this encounter Additional Health Concerns Infection Onset Date Last Indicated Resolved Time CoV-Risk 11/14/2024 11/14/2024 11/25/2024 1:22 AM EST CoV-Risk 01/05/2025 01/05/2025 01/16/2025 1:23 AM EDT documented as of this encounter Care Teams Education Paraprofessional Relationship Specialty Start Date End Date Tatiana Grimes MD [address] [place] [email or web address] PCP - General Internal Medicine 09/24/21 12/11/22 Aliyah Ramires PA 15 [place] [address] [email or web address] PCP - General Physician Feed Mixer Helper 12/12/22 documented as of this encounter Additional Source Comments The information contained in this document represents components of the legal health record. It is not the complete legal health record.[facility]
--- OUTSIDE RECORDS SUMMARY | 2025-08-04 22:08 | XMS_ITS | Encounter Summary ---
Author Organization [facility] Address [address] [facility] [address] [place] [address] Phone Care Team Providers Care Stock Parts Inspector Name Role Phone Tatiana Grimes MD Primary Care Provider Aliyah Ramires Primary Care Provider Encounter Details Date Type Department Care Team (Late Contact Info) Description 04/23/2022 Transcribe Orders Virtual Department 30 [place] [address] Tatiana Grimes MD 15 [place] [address] [email or web address] Mass of lower leg, unspecified laterality (Primary Dx) Social History Tobacco Use Types [...] Description 09/06/2025 11:45 AM EST Office Visit [facility] [address] [place] [address] 3rd Floor, [address] [place] [address] Benja Collado MD 22 [facility] [address] [place] [address] 10/20/2025 11:00 AM EST Office Visit [facility] Neurology 22 [place] [address] Benja Ma MD 22 [facility], 2nd [place] [address] [email or web address] documented as of this encounter Visit Diagnoses Diagnosis Mass of lower leg, unspecified laterality- Primary documented in this encounter Additional Health Concerns Infection Onset Date Last Indicated Resolved Time CoV-Risk 11/14/2024 11/14/2024 11/25/2024 1:22 AM EST CoV-Risk 01/05/2025 01/05/2025 01/16/2025 1:23 AM EDT documented as of this encounter Care Teams Stock Parts Inspector Relationship Specialty Start Date End Date Tatiana Grimes MD [address] [place] [address] [email or web address] PCP - General Internal Medicine 09/24/21 12/11/22 Aliyah Ramires PA [address] [place] [phone] [email or web address] PCP - General Physician Floor Specialist 12/12/22 documented as of this encounter Additional Source Comments The information contained in this document represents components of the legal health record. It is not the complete legal health record.[facility]
--- OUTSIDE RECORDS SUMMARY | 2025-08-04 22:08 | XMS_ITS | Encounter Summary ---
Author Organization [facility] Address [address] [facility] [address] [place] [address] Phone Care Team Providers Care Public Improvement Inspector Name Role Phone Tatiana Grimes MD Primary Care Provider Aliyah Ramires Primary Care Provider Encounter Details Date Type Department Care Team (Latest Contact Info) Description 11/25/2021 Transcribe Orders Virtual Department 30 [place] [address] Aliyah Ramires PA [address] [place] [address] [email or web address] Pain of left heel (Primary Dx) Social History Tobacco Use Types [...] Description 09/06/2025 11:45 AM EST Office Visit [facility] [address] [place] [address] 3rd Floor, [address] [place] [address] Benja Collado MD [address] [facility], [address] [place] [address] 10/20/2025 11:00 AM EST Office [facility] [address] [place] [address] Benja Ma MD 22 [facility], 2nd [place] [address] [email or web address] documented as of this encounter Results * XR ANKLE 3 OR MORE VIEWS (LEFT) (12/06/2021 10:07 AM EDT) Anatomical Region Laterality Modality Ankle Left Computed Radiogr aphy 12/06/2021 11:1 5 AM EDT Impressions 12/06/2021 11:19 AM EDT Calcaneal spurring suggesting early Zeeshan's deformity which could be correlated with any clinical findings of Achilles tendinosis or calcaneal bursitis. MRI could be performed for further evaluation, if desired. POS - [id number] Narrative 12/06/2021 11:19 AM EDT COMPARISON: 12/19/2012 FINDINGS: Frontal, lateral, and oblique views reveal no fracture, subluxation, or other acute bony abnormality. No significant arthritic changes are demonstrated. There is chronic plantar calcaneal spur and minimal dorsal spurring at the Achilles tendon insertion point. There is now minimal spurring along the dorsal superior corner of the calcaneus which may reflect Zeeshan's deformity. There may be mild swelling of the distal Achilles. No evidence of joint effusion. Procedure Note Deshaun Franklin MD - 12/06/2021 COMPARISON: 12/19/2012 FINDINGS: Frontal, lateral, and oblique views reveal no fracture, subluxation, orother acute bony abnormality. No significant arthritic changes aredemonstrated. There is chronic plantar calcaneal spur and minimal dorsalspurring at the Achilles tendon insertion point. There is now minimalspurring along the dorsal superior corner of the calcaneus which mayreflect Zeeshan's deformity. There may be mild swelling of the distalAchilles. No evidence of joint effusion. IMPRESSION: Calcaneal spurring suggesting early Zeeshan's deformity which could becorrelated with any clinical findings of Achilles tendinosis or calcanealbursitis. MRI could be performed for further evaluation, if desired. POS - [id number] Aliyah GARRETT IMG XR LOWER EXTREMITY Final Re sult documented in this encounter Visit Diagnoses Diagnosis Pain of left heel- Primary Pain of left heel documented in this encounter Additional Health Concerns Infection Onset Date Last Indicated Resolved Time CoV-Risk 11/14/2024 11/14/2024 11/25/2024 1:22 AM EST CoV-Risk 01/05/2025 01/05/2025 01/16/2025 1:23 AM EDT documented as of this encounter Care Teams Public Improvement Inspector Relationship Specialty Start Date End Date Tatiana Grimes MD 15 [place] [address] PCP - General Internal Medicine 09/24/21 12/11/22 Aliyah Ramires PA [address] [place] [address] [email or web address] PCP - General Physician Apprise Counselor 12/12/22 documented as of this encounter Additional Source Comments The information contained in this document represents components of the legal health record. It is not the complete legal health record.[facility]
--- OUTSIDE RECORDS SUMMARY | 2025-08-04 22:08 | XMS_ITS | Encounter Summary ---
Author Organization [facility] Address [address] [place] [address] Phone Care Team Providers Care Inside Sales Assistant Name Role Phone Tatiana Grimes MD Primary Care Provider Aliyah Ramires Primary Care Provider [phone] Reason for Referral * MRI/CAT Scan - Closed Specialty Diagnoses / Procedures Referred By Ru kemp Referred To Contact Radiology Diagnoses Cognitive decline Tremor Procedures MRI Brain Aliyah Ramires PA Phone: tel: fax: [email or web address] Referral ID Status Reason Start Date Expiration Date Visits Re quested Visits Authorized [id number] Closed 02/28/2022 02/28/2023 1 1 Encounter Details Date Type Department Care Team (Latest Contact Info) Description 02/28/2022 Transcribe Orders Virtual Department 30 [place] [address] Aliyah Ramires PA [address] [place] [address] [email or web address] Cognitive decline (Primary Dx); Tremor Social History Tobacco Use Types Packs/Day Years [...] Description 09/06/2025 11:45 AM EST Office Visit [facility] [address] [facility] 3rd Floor, [address] [place] [address] Benja Collado MD [address] [place] [address], [address] [address] 10/20/2025 11:00 AM EST Office Visit [facility] Neurology [address] [place] [address] Benja Ma MD [address] [place] [address], 2nd [place] [address] [email or web address] documented as of this encounter Results * MRI BRAIN WITHOUT CONTRAST (04/15/2022 4:20 PM EDT) Anatomical Region Laterality Modality Head Magnetic Resonan ce 04/15/2022 5:07 PM EDT Impressions 04/15/2022 5:21 PM EDT 1.No acute abnormality. 2.Few tiny T2 hyperintense white matter foci, similar to 03/14/2014, nonspecific but are most commonly seen with chronic migraines and mild chronic microvascular ischemic disease. Narrative 04/15/2022 5:21 PM EDT MRI BRAIN WITHOUT CONTRAST TECHNIQUE: Multi-sequence, multi-planar MRI of the brain was performed without intravenous contrast. COMPARISON: Head MRI dated 03/18/2014 FINDINGS: Patient motion artifact mildly degrades several images. Within this confine: Brain Parenchyma: No evidence of acute infarct, mass lesion, or hemorrhage. Corpus callosum and midline structures are unremarkable. Few tiny bilateral subcortical and periventricular white matter T2/FLAIR hyperintense foci are noted, not significantly changed from 03/18/2014, nonspecific but are most commonly seen with chronic migraines and mild chronic microvascular ischemic disease. Less common differential considerations include demyelinating processes (such as MS), Lyme disease, vasculitis, among other etiologies. Ventricular System and Extra-Axial Spaces: Normal. No evidence of midline shift or hydrocephalus. Extracranial Structures: Arterial flow voids in the skull base are present. The paranasal sinuses and mastoid air cells are clear. The orbits are unremarkable Procedure Note Clara James MD - 04/15/2022 MRI BRAIN WITHOUT CONTRAST TECHNIQUE: Multi-sequence, multi-planar MRI of the brain was performed withoutintravenous contrast. COMPARISON: Head MRI dated 03/18/2014 FINDINGS: Patient motion artifact mildly degrades several images. Within thisconfine: Brain Parenchyma: No evidence of acute infarct, mass lesion, orhemorrhage. Corpus callosum and midline structures are unremarkable. Few tiny bilateral subcortical and periventricular white matter T2/FLAIRhyperintense foci are noted, not significantly changed from 03/18/2014,nonspecific but are most commonly seen with chronic migraines and mildchronic microvascular ischemic disease. Less common differentialconsiderations include demyelinating processes (such as MS), Lyme disease,vasculitis, among other etiologies. Ventricular System and Extra-Axial Spaces: Normal. No evidence of midlineshift or hydrocephalus. Extracranial Structures: Arterial flow voids in the skull base arepresent. The paranasal sinuses and mastoid air cells are clear. The orbits areunremarkable IMPRESSION: 1.No acute abnormality. 2.Few tiny T2 hyperintense white matter foci, similar to 03/14/2014,nonspecific but are most commonly seen with chronic migraines and mildchronic microvascular ischemic disease. Aliyah TOPETE MR HEAD/NECK Final Result documented in this encounter Visit Diagnoses Diagnosis Cognitive decline- Primary Tremor Abnormal involuntary movements Cognitive decline Tremor Abnormal involuntary movements documented in this encounter Additional Health Concerns Infection Onset Date Last Indicated Resolved Time CoV-Risk 11/14/2024 11/14/2024 11/25/2024 1:22 AM EST CoV-Risk 01/05/2025 01/05/2025 01/16/2025 1:23 AM EDT documented as of this encounter Care Teams Inside Sales Assistant Relationship Specialty Start Date End Date Tatiana Grimes MD 15 [place] [address] [email or web address] PCP - General Internal Medicine 09/24/21 12/11/22 Aliyah Ramires PA [address] [place] [address] [email or web address] PCP - General Physician Food Service Manager 12/12/22 documented as of this encounter Additional Source Comments The information contained in this document represents components of the legal health record. It is not the complete legal health record.[facility]
--- OUTSIDE RECORDS SUMMARY | 2025-08-04 22:08 | XMS_ITS | Encounter Summary ---
Author Organization [facility] Address [address] [place] [address] Phone Care Team Providers Care Facility Maintenance Worker Name Role Phone Aliyah Ramires Primary Care Provider [phone] Encounter Details Date Type Department Care Team (Late Contact Info) Description 12/12/2022 Procedure Pass [facility]oscopy Admitting Dept Virtual Department 30 [place] [address] Social History Tobacco Use Types Packs/Day Years Used Date Smoking Tobacco: Former Smokeless Tobacco: Never Comments:quit 8 years ago Alcohol Use Standard Drinks/Week Comments Never 0 (1 standard drink = 0.6 oz pur e alcohol) Intimate Partner Violence Answer Date R ecorded Are you denied basic needs [facility] as food, clothing, or medical care? No 12/12/2022 In the past 12 months have y ou been in a relationship with a person who hurts, threatens, or tries to control you? No 12/12/2022 Are you denied basic needs [facility] as food, clothing, or medical care? No [...] Description 09/06/2025 11:45 AM EST Office Visit [facility] [address] 3[address] Floor, [address] [place] [address] Benja Collado MD 22 [facility], [address] [address] 10/20/2025 11:00 AM EST Office Visit [facility] Neurology [address] [place] [address] Benja Ma MD [address] [facility], 2nd [place] [address] [email or web address] documented as of this encounter Visit Diagnoses Not on filedocumented in this encounter Additional Health Concerns Infection Onset Date Last Indicated Resolved Time CoV-Risk 11/14/2024 11/14/2024 11/25/2024 1:22 AM EST CoV-Risk 01/05/2025 01/05/2025 01/16/2025 1:23 AM EDT documented as of this encounter Care Teams Facility Maintenance Worker Relationship Specialty Start Date End Date Aliy[place] [address] [email or web address] PCP - General Physician Occupational Therapy Technician 12/12/22 documented as of this encounter Additional Source Comments The information contained in this document represents components of the legal health record. It is not the complete legal health record.[facility]
--- OUTSIDE RECORDS SUMMARY | 2025-08-04 22:08 | XMS_ITS | Encounter Summary ---
Author Organization [facility] Address [address] [facility] [address] [place] [address] Phone Care Team Providers Care Special Tester Name Role Phone Aliyah Ramires Primary Care Provider [phone] Encounter Details Date Type Department Care Team ([facility] st Contact Info) Description 07/24/2023 Ancillary Orders [facility], X-[address] [address] Aliyah Ramires PA [address] [place] [address] [email or web address] Right wrist pain Social History Tobacco Use Types Packs/Day [...] Description 09/06/2025 11:45 AM EST Office Visit [facility] [address] [place] [address] 3rd Floor, [address] [place] [address] Benja Collado MD [address] [place] [address], [address] [address] 10/20/2025 11:00 AM EST Office Visit [facility] Neurology [address] [place] [address] Benja Ma MD [address] [place] [address], 2nd [place] [address] [email or web address] documented as of this encounter Results * XR WRIST 3 OR MORE VIEWS (RIGHT) (07/24/2023 10:00 AM EDT) Anatomical Region Laterality Modality Wrist Right Computed Radiogr aphy 07/27/2023 10:1 0 AM EST Impressions 07/27/2023 10:11 AM EST No acute bony abnormality or advanced arthritic change apparent. Narrative 07/27/2023 10:11 AM EST XR WRIST 3 OR MORE VIEWS (RIGHT) COMPARISON: None HISTORY: Pain FINDINGS: No fracture, subluxation, or other acute bony abnormality. Probable small lunate cyst. No erosive arthropathy. Mild degenerative change in the first carpal- metacarpal compartment. No gross displacement of pronator fat pad. Procedure Note Deshaun Franklin MD - 07/27/2023 XR WRIST 3 OR MORE VIEWS (RIGHT) COMPARISON: None HISTORY: Pain FINDINGS: No fracture, subluxation, or other acute bony abnormality. Probable smalllunate cyst. No erosive arthropathy. Mild degenerative change in the firstcarpal-metacarpal compartment. No gross displacement of pronator fatpad. IMPRESSION: No acute bony abnormality or advanced arthritic change apparent. us Aliyah GARRETT IMG XR UPPER EXTREMITY Final Re sult documented in this encounter Visit Diagnoses Diagnosis Right wrist pain Pain in joint, forearm Right wrist pain Pain in joint, forearm documented in this encounter Additional Health Concerns Infection Onset Date Last Indicated Resolved Time CoV-Risk 11/14/2024 11/14/2024 11/25/2024 1:22 AM EST CoV-Risk 01/05/2025 01/05/2025 01/16/2025 1:23 AM EDT documented as of this encounter Care Teams Special Tester Relationship Specialty Start Date End Date [place] [address] [email or web address] PCP - General Physician Barrel Builder 12/12/22 documented as of this encounter Additional Source Comments The information contained in this document represents components of the legal health record. It is not the complete legal health record.[facility]
--- OUTSIDE RECORDS SUMMARY | 2025-08-04 22:09 | XMS_ITS | Encounter Summary ---
Author Organization [facility] Address [address] [facility] [address] [place] [address] Phone Care Team Providers Care Project Administrator Name Role Phone Aliyah Ramires Primary Care Provider [phone] Encounter Details Date Type Department Care Team ([facility] st Contact Info) Description 02/09/2025 Ancillary Orders [facility], X-Ray - [address] [address] Aliyah Ramires PA [address] [place] [address] [email or web address] pain on right side (Primary Dx) Social History Tobacco Use Types [...] Description 09/06/2025 11:45 AM EST Office Visit [facility] [address] [place] [address] 3rd Floor, [address] [place] [address] Benja Collado MD [address] [place] [address], [address] [address] 10/20/2025 11:00 AM EST Office Visit [facility] Neurology [address] [place] [address] Benja Ma MD [address] [place] [address], 2nd [place] [address] documented as of this encounter Results * XR RIBS 3 OR MORE VIEWS WITH PA CHEST (RIGHT) (02/09/2025 3:37 PM EDT) Anatomical Region Laterality Modality Chest Computed Radiogr aphy 02/10/2025 3:40 PM EDT Impressions 02/10/2025 3:43 PM EDT No acute displaced rib fracture is identified. Narrative 02/10/2025 3:43 PM EDT XR RIBS 3 OR MORE VIEWS WITH PA CHEST (RIGHT) Referring clinician's provided indication for this examination in Epic: Pain COMPARISON: Chest radiographs 01/06/2025 FINDINGS: No acute displaced rib fracture is identified. PA evaluation of the chest is without evidence of focal consolidation, pleural effusion, pulmonary edema, or pneumothorax. The cardiomediastinal silhouette is stable. Procedure Note Di Magaña MD - 02/10/2025 XR RIBS 3 OR MORE VIEWS WITH PA CHEST (RIGHT) Referring clinician's provided indication for this examination in [facility]:Pain COMPARISON: Chest radiographs 01/06/2025 FINDINGS: No acute displaced rib fracture is identified. PA evaluation of the chest is without evidence of focal consolidation,pleural effusion, pulmonary edema, or pneumothorax. The cardiomediastinalsilhouette is stable. IMPRESSION: No acute displaced rib fracture is identified. Aliyah GARRETT IMG XR CHEST Final Result documented in this encounter Visit Diagnoses Diagnosis Rib pain on right side- Primary Rib pain on right side documented in this encounter Care Teams Project Administrator Relationship Specialty Start Date End Date Aliyah Ramires PA [address] [place] [address] [email or web address] PCP - General Physician Biofuels Operations Manager 12/12/22 documented as of this encounter Additional Source Comments The information contained in this document represents components of the legal health record. It is not the complete legal health record.[facility]
--- OUTSIDE RECORDS SUMMARY | 2025-08-04 22:09 | XMS_ITS | Encounter Summary ---
Author Organization [facility] Address [address] [address] Phone Care Team Providers Care Snowboarder Name Role Phone Aliyah Ramires Primary Care Provider [phone] Encounter Details Date Type Department Care Team ([facility] Contact Info) Description 01/20/2025 Procedure Pass Echo Lab [address] [place] [address] Social History Tobacco Use Types Packs/Day Years [...] Description 09/06/2025 11:45 AM EST Office Visit [facility] [address] [facility] 3rd Floor, [address] [place] [address] Benja Collado MD [address] [place] [address], [address] [address] 10/20/2025 11:00 AM EST Office Visit [facility] [address] [place] [id number] Benja Ma MD [address] [facility] 2nd [place] [address] [email or web address] documented as of this encounter Visit Diagnoses Not on filedocumented in this encounter Care Teams Snowboarder Relationship Specialty Start Date End Date Aliyah Ramires PA [address] [place] [address] [email or web address] PCP - General Physician Supervisor Show Operations 12/12/22 documented as of this encounter Additional Source Comments The information contained in this document represents components of the legal health record. It is not the complete legal health record.[facility]
== END 2025-08-04 16:24 | disposition home or self-care (01) ==
LOC: HO.HMCH 14:40
PROVIDERS: PCP Physician Assistant; Visit Provider Internal Medicine
DX: Z00.00 Encounter for general adult medical examination without abnormal findings (principal); R25.1 Tremor, unspecified; F32.0 Major depressive disorder, single episode, mild; G47.00 Insomnia, unspecified; N95.9 Unspecified menopausal and perimenopausal disorder; F17.200 Nicotine dependence, unspecified, uncomplicated; R19.7 Diarrhea, unspecified; R26.81 Unsteadiness on feet; Z23 Encounter for immunization

== ENCOUNTER → 2025-08-04 14:39 | Outpatient (BNVA) | payer MEDICARE, SELFPAY | PROVIDERS: PCP Physician Assistant; Visit Provider Internal Medicine | DX: Z00.00 Encounter for general adult medical examination without abnormal findings (principal); Z23 Encounter for immunization; R25.1 Tremor, unspecified; F32.0 Major depressive disorder, single episode, mild; G47.00 Insomnia, unspecified; N95.9 Unspecified menopausal and perimenopausal disorder; R19.7 Diarrhea, unspecified; R26.81 Unsteadiness on feet; Z87.891 Personal history of nicotine dependence | CPT/HCPCS: 90471; 90656; 90715; 96127; 99202; 99387 ==